=== PATIENT | female | born 1965 | race Caucasian/White ===

== ENCOUNTER → 2017-01-12 | Outpatient (CLI) | payer OTHER ==
--- NOTE | 2017-01-13 11:54 | MM ---
Reason for exam: screening (asymptomatic). Last mammogram was performed 1 year and 2 months ago. History: Patient is nulliparous. Excisional biopsy of the right breast, September 14, 2007. 2 excisional biopsies of the left breast. Physical Findings: A clinical breast exam by your physician is recommended on an annual basis and results should be correlated with mammographic findings. MG Screening Mammo w CAD Bilateral CC and MLO view(s) were taken. XCCL view(s) were taken of the left breast. Prior study comparison: November 27, 2015, bilateral MG screening mammo w CAD. July 21, 2014, bilateral MG screening mammo w CAD. The breast tissue is extremely dense which could obscure a lesion on mammography. Finding: There are typically benign calcifications. No significant changes in finding since November 27, 2015 and July 21, 2014. ASSESSMENT: Benign, BI-RAD 2 RECOMMENDATION: Routine screening mammogram of both breasts in 1 year.
== END | disposition home or self-care (01) ==
LOC: RADMAMWWP 11:41
PROVIDERS: ATTEND Family Medicine
DX: Z12.31 Encounter for screening mammogram for malignant neoplasm of breast (principal)

== ENCOUNTER 2017-04-21 19:17 | Emergency (ER) | payer OTHER ==
[2017-04-21 19:33] VITALS: BP 124/58; PULSE 89; RESP 20; TEMP 98
[2017-04-21] MEDS ORDERED: ceFAZolin 1,000 MG VIAL IM STA (20:03)
[2017-04-21] MEDS ORDERED: SULFAMETH-TMP DS STARTER PACK 2 TAB BTL PO STA (20:04)
--- NOTE | 2017-04-21 20:14 | ED ---
General Adult HPI - General Chief complaint: Skin/Abscess/Foreign Body Stated complaint: rt breast swelling and tenderness Time Seen by Provider: 04/21/17 19:44 Source: patient, RN notes reviewed, old records reviewed Mode of arrival: ambulatory Limitations: no limitations - History of Present Illness Initial comments: This is a pleasant 51-year-old female who is still developmentally disabled presenting to the emergency department with chief complaint of r right breast tenderness, redness and swelling for the past day. Patient's caregiver reports that she gave her shower yesterday and did not notice anything. She reports that today when he went to take a shower shethat are right breast is been inflamed. Patient caregiver reports she did have a mammogram 3 months ago which was clear. He states that she has a history of OCD and is constantly picking at her skin. She reports that she's had a chronic rash between her breasts and believes that the patient was scratching at this causes the new erythema and redness. Patient has had no fevers or chills. Patient's caregiver denies any other associated symptoms.Patient denies any recent fever, chills, shortness of breath, chest pain, back pain, abdominal pain, nausea vomiting, numbness or tingling, dysuria or hematuria, constipation or diarrhea, headaches or visual changes, or any other current symptoms - Related Data Previous Rx's Medication Instructions Recorded Cephalexin [Keflex] 500 mg PO Q6HR #40 cap 04/21/17 Sulfamethox-Tmp 800-160Mg [Bactrim 1 tab PO Q12HR #20 tab 04/21/17 DS 800-160 mg] Allergies Allergy/AdvReac Type Severity Reaction Status Date / Time No Known Allergies Allergy Verified 04/21/17 19:32 Review of Systems ROS Statement: Those systems with pertinent positive or pertinent negative responses have been documented in the HPI. ROS Other: All systems not noted in ROS Statement are negative. Past Medical History Past Medical History: Hyperlipidemia, Seizure Disorder Additional Past Medical History / Comment(s): developmentally disable, History of Any Multi-Drug Resistant Organisms: None Reported Past Surgical History: Cholecystectomy Additional Past Surgical History / Comment(s): lumpectomy bilateral breasts. Past Psychological History: No Psychological Hx Reported Smoking Status: Never smoker Past Alcohol Use History: None Reported Past Drug Use History: None Reported General Exam - General Exam Comments Initial Comments: Curt 51-year-old female. No acute distress. Limitations: no limitations General appearance: alert, in no apparent distress Head exam: Present: atraumatic, normocephalic, normal inspection Eye exam: Present: normal appearance, PERRL, EOMI. Absent: scleral icterus, conjunctival injection, periorbital swelling ENT exam: Present: normal exam, mucous membranes moist Neck exam: Present: normal inspection. Absent: tenderness, meningismus, lymphadenopathy Respiratory exam: Present: normal lung sounds bilaterally, other (Right breast redness and swelling. No evidence of focal abscess. No significant induration. ). Absent: respiratory distress, wheezes, rales, rhonchi, stridor Cardiovascular Exam: Present: regular rate, normal rhythm, normal heart sounds. Absent: systolic murmur, diastolic murmur, rubs, gallop, clicks GI/Abdominal exam: Present: soft, normal bowel sounds. Absent: distended, tenderness, guarding, rebound, rigid Extremities exam: Present: normal inspection, full ROM, normal capillary refill. Absent: tenderness, pedal edema, joint swelling, calf tenderness Back exam: Present: normal inspection Neurological exam: Present: alert, oriented X3, CN II-XII intact Psychiatric exam: Present: normal affect, normal mood Skin exam: Present: warm, dry, intact, normal color. Absent: rash Course Vital Signs 04/21/17 19:27 Temperature 98 F Pulse Rate 89 Respiratory 20 Rate Blood Pressure 124/58 O2 Sat by Pulse 97 Oximetry Medical Decision Making - Medical Decision Making This is a pleasant 51-year-old female who is still developmentally disabled presenting to the emergency department with chief complaint of r right breast tenderness, redness and swelling for the past day. Patient's caregiver reports that she gave her shower yesterday and did not notice anything. She reports that today when he went to take a shower shethat are right breast is been inflamed. Patient caregiver reports she did have a mammogram 3 months ago which was clear. He states that she has a history of OCD and is constantly picking at her skin. She reports that she's had a chronic rash between her breasts and believes that the patient was scratching at this causes the new erythema and redness. Patient has had no fevers or chills. Patient's caregiver denies any other associated symptoms. His vital signs are stable. Patient is afebrile at this time. Patient given IM Kefzol and Bactrim DS tablet. Discussed this case with Dr. Robles we will send the patient home on outpatient oral antibiotic therapy. Discussed with the caregiver and patient if there is area of erythema continues to spread or worse they need to return to the emergency department for IV antibiotic. Patient also was informed of the possibility of inflammatory breast cancer the area of redness does not clear within taking the antibiotics. Patient's caregiver is in agreement. Patient caregiver and patient understand treatment plan will comply. Return parameters were discussed. Disposition Clinical Impression: Cellulitis of right breast Disposition: HOME SELF-CARE Condition: Good Instructions: Cellulitis (ED) Additional Instructions: Patient advised to complete the antibiotic prescription. Follow-up with primary care provider. Return to the emergency department if the area of redness continues to worsen despite taking antibiotics. Recommending applying ice over the area of redness for pain relief, as well as taking Motrin and Tylenol. Prescriptions: Cephalexin [Keflex] 500 mg PO Q6HR #40 cap Sulfamethox-Tmp 800-160Mg [Bactrim DS 800-160 mg] 1 tab PO Q12HR #20 tab Referrals: Mango Randall DO [Primary Care Provider] - 1-2 days Time of Disposition: 20:10
[2017-04-21] MEDS ORDERED: CEPHALEXIN 500MG STARTER PACK 4 CAP BTL PO STA (20:20)
== END 2017-04-21 20:38 | disposition home or self-care (01) ==
LOC: EC 19:17
DX: N61.0 Mastitis without abscess (principal); Z98.890 Other specified postprocedural states
CPT/HCPCS: 99283; 96372; J0690

== ENCOUNTER → 2017-12-30 | Outpatient (CLI) | payer OTHER ==
[2017-12-30 12:53] LABS: Basophils % (A) 0 %; Eosinophils # (A) 0.1 k/uL (0-0.7); Eosinophils % (A) 1 %; HGB 12.4 gm/dL (11.4-16.0); Lymphocytes % (A) 34 %; MCH 34.1 pg (25.0-35.0); MCHC 33.5 g/dL (31.0-37.0); MCV 101.8 fL (80.0-100.0); Macrocytosis Slight; Mean Platelet Volume 7.2; Monocytes # (A) 0.5 k/uL (0-1.0); Monocytes % (A) 9 %; Neutrophils # (A) 3.1 k/uL (1.3-7.7); Neutrophils % (A) 53 %; Platelet Count 203 k/uL (150-450); RBC 3.64 m/uL (3.80-5.40); RDW 15.1 % (11.5-15.5); WBC 5.9 k/uL (3.8-10.6)
[2017-12-30 13:12] LABS: Valproic Acid (Depakene) 70.9 ug/mL
== END | disposition home or self-care (01) ==
LOC: LABWHC1 11:52
PROVIDERS: ATTEND Psychiatry & Neurology Neurology
DX: G40.209 Localization-related (focal) (partial) symptomatic epilepsy and epileptic syndromes with complex partial seizures, not intractable, without status epilepticus (principal)
CPT/HCPCS: 36415; 80164; 80175; 84450; 84460; 85025

== ENCOUNTER → 2018-05-13 | Outpatient (CLI) | payer OTHER ==
--- NOTE | 2018-05-18 13:52 | MM ---
Reason for exam: screening (asymptomatic). Last mammogram was performed 1 year and 4 months ago. History: Patient is nulliparous. Excisional biopsy of the right breast, September 14, 2007. 2 excisional biopsies of the left breast. MG Screening Mammo w CAD Bilateral CC and MLO view(s) were taken. Prior study comparison: January 12, 2017, bilateral MG screening mammo w CAD. November 27, 2015, bilateral MG screening mammo w CAD. July 21, 2014, bilateral MG screening mammo w CAD. The breast tissue is extremely dense which could obscure a lesion on mammography. Some stable distortion centrally right breast CC view suggestive of prior excisional biopsy. Additional distortion posterior medially left breast also seen previously suggestive of prior excisional biopsy. Two groups of microcalcifications medial right breast new from older priors and increased from recent prior. ASSESSMENT: Incomplete: need additional imaging evaluation, BI-RAD 0 RECOMMENDATION: Special view mammogram of the right breast.
== END | disposition home or self-care (01) ==
LOC: RADMAMWWP 14:45
PROVIDERS: ATTEND Family Medicine
DX: Z12.31 Encounter for screening mammogram for malignant neoplasm of breast (principal)
CPT/HCPCS: 77067

== ENCOUNTER → 2018-06-09 | Outpatient (CLI) | payer OTHER ==
--- NOTE | 2018-06-10 11:57 | MM ---
Reason for exam: additional evaluation requested from abnormal screening. Last mammogram was performed 1 month ago. History: Patient is nulliparous. Excisional biopsy of the right breast, September 14, 2007. 2 excisional biopsies of the left breast. Physical Findings: Nurse did not find any significant physical abnormalities on exam. MG Work Up Mamm w CAD RT CC with magnification, LM with magnification, and LM view(s) were taken of the right breast. Prior study comparison: May 13, 2018, bilateral MG screening mammo w CAD. January 12, 2017, bilateral MG screening mammo w CAD. The breast tissue is heterogeneously dense. This may lower the sensitivity of mammography. Two grouped heterogeneous calcifications probably at 1 o'clock and 5-6 o'clock. These results were verbally communicated with the patient and result sheet given to the patient on 06/09/18. ASSESSMENT: Suspicious, BI-RAD 4 RECOMMENDATION: Stereotactic core biopsy of the right breast. (2 sites) Called Dr. Randall with mammographic findings and has scheduled an appointment for the patient for 06/17/18 at 1:[address] Reeder. PRELIMINARY REPORT CALLED AND FAXED TO DR. REEDER ON 06/10/18.
== END | disposition home or self-care (01) ==
LOC: RADMAMWWP 10:51
PROVIDERS: ATTEND Family Medicine
DX: R92.8 Other abnormal and inconclusive findings on diagnostic imaging of breast (principal)
CPT/HCPCS: 77065

== ENCOUNTER → 2018-07-05 | Day surgery (SDC) | payer OTHER ==
[2018-07-05 12:59] VITALS: RESP 16; BMI 27.4
[2018-07-05 14:57] VITALS: BP 111/69; PULSE 71; TEMP 97.5
--- NOTE | 2018-07-05 16:30 | P.OP ---
Date of Procedure: 07/05/18 Preoperative Diagnosis: Abnormal mammogram with suspicious lesions 2 Postoperative Diagnosis: Abnormal right mammogram with suspicious agents 2 Procedure(s) Performed: Stereotactic core biopsy of right breast 2 Anesthesia: local Surgeon: Shashi Reeder Estimated Blood Loss (ml): 2 Pathology: other (Right breast core biopsy) Condition: stable Description of Procedure: The patient's placed on the stereotactic table. Her right breast was prepped and draped usual sterile fashion. The patient's lesion was then targeted by the radiologist. Sequential core biopsies performed of the abnormality. A clip was placed Patient tolerated the procedure. The patient's breasts was then repositioned in stereotactic core table. A new suspicious area was then core biopsied after being targeted by the radiologist. Sequential core biopsy performed. A clip was placed. Patient top procedure well.
== END | disposition home or self-care (01) ==
LOC: RADMAMWWP 12:22
PROVIDERS: ATTEND Surgery
DX: D24.1 Benign neoplasm of right breast (principal); N60.21 Fibroadenosis of right breast
CPT/HCPCS: 88305; 19081; 19082; A4648

== ENCOUNTER → 2018-07-12 | Outpatient (CLI) | payer SELFPAY ==
[2018-07-12 13:24] LABS: Basophils % (A) 0 %; Eosinophils # (A) 0.1 k/uL (0-0.7); Eosinophils % (A) 1 %; HCT 36.5 % (34.0-46.0); HGB 11.8 gm/dL (11.4-16.0); Lymphocytes % (A) 37 %; MCH 33.6 pg (25.0-35.0); MCHC 32.2 g/dL (31.0-37.0); MCV 104.4 fL (80.0-100.0); Macrocytosis Moderate; Mean Platelet Volume 7.2; Monocytes # (A) 0.5 k/uL (0-1.0); Monocytes % (A) 8 %; Neutrophils # (A) 2.8 k/uL (1.3-7.7); Neutrophils % (A) 51 %; Platelet Count 218 k/uL (150-450); RDW 15.8 % (11.5-15.5); WBC 5.4 k/uL (3.8-10.6)
[2018-07-12 13:45] LABS: Valproic Acid (Depakene) 82.1 ug/mL
== END | disposition home or self-care (01) ==
LOC: LABWHC1 13:02
PROVIDERS: ATTEND Psychiatry & Neurology Neurology
DX: G40.209 Localization-related (focal) (partial) symptomatic epilepsy and epileptic syndromes with complex partial seizures, not intractable, without status epilepticus (principal)
CPT/HCPCS: 36415; 80164; 80175; 84450; 84460; 85025

== ENCOUNTER 2018-11-18 13:49 | Emergency (ER) | payer OTHER ==
[2018-11-18 14:36] VITALS: RESP 18; TEMP 98.7
[2018-11-18] MEDS ORDERED: SODIUM CHLORIDE 0.9% 1,000 ML IV ONE (14:45)
[2018-11-18 15:54] LABS: Appearance,Urine Clear (Clear); Bilirubin,Urine Negative (Negative); Blood,Urine Small (Negative); Color,Urine Yellow; Glucose,Urine (UA) Negative (Negative); Ketones,Urine 2+ (Negative); Leukocyte Esterase,Urine Trace (Negative); Mucus,Urine Occasional /hpf; Nitrite,Urine Negative (Negative); PH, Urine 6.5 (5.0-8.0); Protein,Urine Trace (Negative); RBC,Urine 12 /hpf (0-5); Specific Gravity,Urine 1.023 (1.001-1.035); Squamous Epithelial Cell,Urine 2 /hpf (0-4)
--- NOTE | 2018-11-18 16:11 | XR ---
EXAMINATION TYPE: XR chest 2V DATE OF EXAM: 11/18/2018 COMPARISON: NONE HISTORY: Altered mental status and cough for 3 days. Lethargy. TECHNIQUE: Frontal and lateral views of the chest are obtained. FINDINGS: Interstitial prominence is most pronounced dependently within the mid and inferior lungs. Cardia mediastinal silhouette is mildly enlarged. Osseous structures are grossly intact. No focal con solidation, pleural effusion or pneumothorax. IMPRESSION: Dependent mild interstitial pulmonary edema likely on the basis of congestive heart fail ure.
[2018-11-18 16:19] LABS: Anisocytosis Slight; Basophils % (A) 0 %; Eosinophils % (A) 1 %; HCT 38.6 % (34.0-46.0); HGB 12.4 gm/dL (11.4-16.0); Lymphocytes # (A) 0.9 k/uL (1.0-4.8); Lymphocytes % (A) 22 %; MCH 33.6 pg (25.0-35.0); MCHC 32.1 g/dL (31.0-37.0); MCV 104.7 fL (80.0-100.0); Macrocytosis Moderate; Monocytes # (A) 0.4 k/uL (0-1.0); Monocytes % (A) 10 %; Neutrophils # (A) 2.7 k/uL (1.3-7.7); Neutrophils % (A) 66 %; Platelet Count 153 k/uL (150-450); RBC 3.69 m/uL (3.80-5.40); RDW 16.2 % (11.5-15.5); WBC 4.1 k/uL (3.8-10.6)
--- NOTE | 2018-11-18 16:22 | CT ---
EXAMINATION TYPE: CT abdomen pelvis w con DATE OF EXAM: 11/18/2018 COMPARISON: HISTORY: Generalized pain CT DLP: 726 mGycm Automated exposure control for dose reduction was used. TECHNIQUE: Helical acquisition of images from the lung bases through the pelvis have been completed. CONTRAST: Performed without Oral Contrast and with IV Contrast, patient injected with 100 mL of Isovue 300. FINDINGS: LUNG BASES: Some probable atelectatic change present in the lingula, left lower lobe, difficult to ex clude pneumonia. AORTA: No significant abnormality is appreciated. LIVER/GB: Patient is post cholecystectomy. Liver shows no mass. PANCREAS: No significant abnormality is seen. SPLEEN: No significant abnormality is seen. ADRENALS: No significant abnormality is seen. KIDNEYS: No significant abnormality is seen. REPRODUCTIVE ORGANS: No significant abnormality is seen BOWEL: No evident bowel obstruction. There are some loops of small bowel showing questionable wall t hickening. Focal metallic density may be represent bowel content along the ascending colon. FREE AIR: No Free Air visible. ASCITES: None visible. PELVIC ADENOPATHY: None visualized. RETROPERITONEAL ADENOPATHY: No Retroperitoneal Adenopathy visible. URINARY BLADDER: No significant abnormality is seen. OSSEOUS STRUCTURES: No significant abnormality is seen. IMPRESSION: CORRELATE TO EXCLUDE ENTERITIS. POSTOP CHANGES. CORRELATE TO EXCLUDE PNEUMONIA. FOLLOW-UP INDICATE D. Additional nonspecific findings described above.
[2018-11-18 16:24] LABS: ALT 37 U/L (9-52); AST 71 U/L (14-36); Albumin 4.2 g/dL (3.5-5.0); Alkaline Phosphatase 76 U/L (38-126); Anion Gap 8 mmol/L; Blood Urea Nitrogen 16 mg/dL (7-17); Calcium 10.3 mg/dL (8.4-10.2); Carbon Dioxide 28 mmol/L (22-30); Chloride 104 mmol/L (98-107); Glucose 83 mg/dL (74-99); Lipase 167 U/L (23-300); Potassium 4.1 mmol/L (3.5-5.1); Sodium 140 mmol/L (137-145); Total Bilirubin 0.3 mg/dL (0.2-1.3); Total Protein 7.8 g/dL (6.3-8.2)
--- NOTE | 2018-11-18 17:16 | US ---
EXAMINATION TYPE: US abdomen limited DATE OF EXAM: 11/18/2018 COMPARISON: CT 2019 CLINICAL HISTORY: RUQ pain. RUQ pain x couple days, history of cholecystectomy EXAM MEASUREMENTS: Liver Length: 16.0 cm Gallbladder Wall: surgically absent CBD: 0.4 cm Right Kidney: 10.5 x 3.8 x 5.1 cm Pancreas: visualized portions wnl, limited by overlying midline bowel gas Liver: wnl Gallbladder: surgically absent Evidence for sonographic Borden's sign: no CBD: visualized portions wnl, limited by overlying bowel gas Right Kidney: wnl IMPRESSION: Cholecystectomy. No dilated ducts. No free fluid. Right kidney shows no hydronephrosis. T here is some cortical thinning on the lower pole of the right kidney that could relate to scarring.
--- NOTE | 2018-11-18 17:19 | ED ---
URI HPI - General Chief Complaint: Upper Respiratory Infection Stated Complaint: No appetie, mental status change Time Seen by Provider: 11/18/18 14:39 Source: patient, Caregiver Mode of arrival: ambulatory Limitations: no limitations - History of Present Illness Initial Comments: 53-year-old female with past medical history of developmental delays presenting today for chief complaint of cough, and abdominal pain. Patient is accompanied by shelter help, she states that patient has been complaining of abdominal pain and sore throat for the past 2-3 days. She states pt has been acting more sluggish she states sometimes this happens with a UTI. I read patient's triage which stated patient had altered mental status however upon further questioning and history taking, they deny any altered mental status they just state she has been acting as though she is sick/more fatigued than normal. No decreased mentation or confusion. Upon history taking from patient she points to her throat as well as her abdomen when questioning about complaints. half-way states they have taken her temperature on multiple occasions and patient has not had a fever. She was given Tylenol this morning for pain management. Patient does admit to some constipation, denied diarrhea, vomiting, hematemesis , melena, hematochezia, back pain, headache, dizziness. Upon arrival patient's appearing well, woman patient is accompanied by states she is at baseline. Pt VS within normal limits. Pt pleasant appearing nontoxic. Remaining ROS (-). There are sick contacts in the shelter including positive influenza. - Related Data Home Medications Medication Instructions Recorded Confirmed Cholecalciferol [Vitamin D3] 1,000 unit PO DAILY 06/23/18 07/05/18 Divalproex [Depakote] 250 mg PO DAILY 06/23/18 07/05/18 Divalproex [Depakote] 500 mg PO BID 06/23/18 07/05/18 Folic Acid 1 mg PO DAILY 06/23/18 07/05/18 Levothyroxine Sodium [Synthroid] 25 mcg PO DAILY 06/23/18 07/05/18 Simvastatin [Zocor] 20 mg PO HS 06/23/18 07/05/18 lamoTRIgine [LaMICtal] 150 mg PO BID 06/23/18 07/05/18 Previous Rx's Medication Instructions Recorded Cephalexin [Keflex] 500 mg PO Q12HR 5 Days #10 cap 11/18/18 Oseltamivir [Tamiflu] 75 mg PO Q12HR 5 Days #10 cap 11/18/18 Allergies Allergy/AdvReac Type Severity Reaction Status Date / Time No Known Allergies Allergy Verified 11/18/18 14:31 Review of Systems ROS Statement: Those systems with pertinent positive or pertinent negative responses have been documented in the HPI. ROS Other: All systems not noted in ROS Statement are negative. Past Medical History Past Medical History: Hyperlipidemia, Seizure Disorder Additional Past Medical History / Comment(s): Developmentally disabled History of Any Multi-Drug Resistant Organisms: None Reported Past Surgical History: Breast Surgery, Cholecystectomy Additional Past Surgical History / Comment(s): Benign excisional biopsy bilateral breasts. Past Anesthesia/Blood Transfusion Reactions: No Reported Reaction Past Psychological History: No Psychological Hx Reported Smoking Status: Never smoker Past Alcohol Use History: None Reported Past Drug Use History: None Reported General Exam - General Exam Comments Initial Comments: General: The patient is awake and alert, in no distress, and does not appear acutely ill. Eye: +3 mm pupils are equal, round and reactive to light, extra-ocular movements are intact. No nystagmus. There is normal conjunctiva bilaterally. No signs of icterus. Ears, nose, mouth and throat: There are moist mucous membranes and no oral lesions. Oropharynx is mildly erythematous there is no tonsillar enlargement exudates or lesions. Uvula midline. Tympanic membranes within normal limits bilaterally. There is no evidence of dental abscess. Neck: The neck is supple, there is no tenderness or JVD. No anterior cervical lymphadenopathy Cardiovascular: There is a regular rate and rhythm. No murmur, rub or gallop is appreciated. Respiratory: Lungs are clear to auscultation, respirations are non-labored, breath sounds are equal. No wheezes, stridor, rales, or rhonchi. Dry cough on exam. Gastrointestinal: Soft, non-distended, non distended abdomen without masses or organomegaly noted. Mild diffuse tenderness to palpation including the RUQ. There is no rebound or guarding present. No CVA tenderness. Bowel sounds are unremarkable. Musculoskeletal: Normal ROM, no tenderness. Strength 5/5. Sensation intact. Radial pulses equal bilaterally 2+. Neurological: A&O x 3. CN II-XII intact, There are no obvious motor or sensory deficits. Coordination appears grossly intact. Speech is normal. Skin: Skin is warm and dry and no rashes or lesions are noted. Psychiatric: Cooperative Limitations: no limitations Course Vital Signs 11/18/18 14:31 Temperature 98.7 F Pulse Rate 83 Respiratory 18 Rate Blood Pressure 125/83 O2 Sat by Pulse 96 Oximetry Medical Decision Making - Medical Decision Making Laboratory studies revealed no leukocytosis. There was evidence of increase of AST. Remaining serum laboratory studies within acceptable limits. US revealed findings concerning for UTI, no recent abx use. Negative ultrasound of the right upper quadrant. Influenza A+ with negative chest x-ray for focal consolidation. Pt symptoms on going about 2 days. Tamiflu will be initiated. CT abdomen was obtained given the complaints of abdominal pain in a developmentally delayed individual with concern patient cannot fully express her complaints, CT revealed findings concerning for enteritis no other abnormalities noted. I discusses the case with attending provider as well as the results of all imaging studies with family. At this time we do feel patient is stable for discharge with treatment for urinary tract infection and Tamiflu for influenza A. otherwise patient is well-appearing, nontoxic with stable vital signs. I do feel patient is stable for discharge with outpatient follow-up and return for any worsening symptoms. 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 Pt discharged in stable condition appearing well. - Lab Data Result diagrams: 11/18/18 15:43 11/18/18 15:43 Lab Results 11/18/18 11/18/18 11/18/18 Range/Units 15:30 15:43 15:43 WBC 4.1 (3.8-10.6) k/uL RBC 3.69 L (3.80-5.40) m/uL Hgb 12.4 (11.4-16.0) gm/dL Hct 38.6 (34.0-46.0) % MCV 104.7 H (80.0-100.0) fL MCH 33.6 (25.0-35.0) pg MCHC 32.1 (31.0-37.0) g/dL RDW 16.2 H (11.5-15.5) % Plt Count 153 (150-450) k/uL Neutrophils % 66 % Lymphocytes % 22 % Monocytes % 10 % Eosinophils % 1 % Basophils % 0 % Neutrophils # 2.7 (1.3-7.7) k/uL Lymphocytes # 0.9 L (1.0-4.8) k/uL Monocytes # 0.4 (0-1.0) k/uL Eosinophils # 0.0 (0-0.7) k/uL Basophils # 0.0 (0-0.2) k/uL Anisocytosis Slight Macrocytosis Moderate Sodium 140 (137-145) mmol/L Potassium 4.1 (3.5-5.1) mmol/L Chloride 104 (98-107) mmol/L Carbon Dioxide 28 (22-30) mmol/L Anion Gap 8 mmol/L BUN 16 (7-17) mg/dL Creatinine 0.63 (0.52-1.04) mg/dL Est GFR (CKD-EPI)AfAm >90 (>60 ml/min/1.73 sqM) Est GFR (CKD-EPI)NonAf >90 (>60 ml/min/1.73 sqM) Glucose 83 (74-99) mg/dL Calcium 10.3 H (8.4-10.2) mg/dL Total Bilirubin 0.3 (0.2-1.3) mg/dL AST 71 H (14-36) U/L ALT 37 (9-52) U/L Alkaline Phosphatase 76 (38-126) U/L Troponin I (0.000-0.034) ng/mL Total Protein 7.8 (6.3-8.2) g/dL Albumin 4.2 (3.5-5.0) g/dL Lipase 167 (23-300) U/L Urine Color Yellow Urine Appearance Clear (Clear) Urine pH 6.5 (5.0-8.0) Ur Specific [place] 1.023 (1.001-1.035) Urine Protein Trace H (Negative) Urine Glucose (UA) Negative (Negative) Urine Ketones 2+ H (Negative) Urine Blood Small H (Negative) Urine Nitrite Negative (Negative) Urine Bilirubin Negative (Negative) Urine Urobilinogen 3.0 (<2.0) mg/dL Ur Leukocyte Esterase Trace H (Negative) Urine RBC 12 H (0-5) /hpf Urine WBC 4 (0-5) /hpf Ur Squamous Epith Cells 2 (0-4) /hpf Urine Mucus Occasional H (None) /hpf Influenza Type A RNA (Not Detectd) Influenza Type B (PCR) (Not Detectd) 11/18/18 11/18/18 Range/Units 15:43 16:25 WBC (3.8-10.6) k/uL RBC (3.80-5.40) m/uL Hgb (11.4-16.0) gm/dL Hct (34.0-46.0) % MCV (80.0-100.0) fL MCH (25.0-35.0) pg MCHC (31.0-37.0) g/dL RDW (11.5-15.5) % Plt Count (150-450) k/uL Neutrophils % % Lymphocytes % % Monocytes % % Eosinophils % % Basophils % % Neutrophils # (1.3-7.7) k/uL Lymphocytes # (1.0-4.8) k/uL Monocytes # (0-1.0) k/uL Eosinophils # (0-0.7) k/uL Basophils # (0-0.2) k/uL Anisocytosis Macrocytosis Sodium (137-145) mmol/L Potassium (3.5-5.1) mmol/L Chloride (98-107) mmol/L Carbon Dioxide (22-30) mmol/L Anion Gap mmol/L BUN (7-17) mg/dL Creatinine (0.52-1.04) mg/dL Est GFR (CKD-EPI)AfAm (>60 ml/min/1.73 sqM) Est GFR (CKD-EPI)NonAf (>60 ml/min/1.73 sqM) Glucose (74-99) mg/dL Calcium (8.4-10.2) mg/dL Total Bilirubin (0.2-1.3) mg/dL AST (14-36) U/L ALT (9-52) U/L Alkaline Phosphatase (38-126) U/L Troponin I <0.012 (0.000-0.034) ng/mL Total Protein (6.3-8.2) g/dL Albumin (3.5-5.0) g/dL Lipase (23-300) U/L Urine Color Urine Appearance (Clear) Urine pH (5.0-8.0) Ur Specific [place] (1.001-1.035) Urine Protein (Negative) Urine Glucose (UA) (Negative) Urine Ketones (Negative) Urine Blood (Negative) Urine Nitrite (Negative) Urine Bilirubin (Negative) Urine Urobilinogen (<2.0) mg/dL Ur Leukocyte Esterase (Negative) Urine RBC (0-5) /hpf Urine WBC (0-5) /hpf Ur Squamous Epith Cells (0-4) /hpf Urine Mucus (None) /hpf Influenza Type A RNA Detected H (Not Detectd) Influenza Type B (PCR) Not Detected (Not Detectd) Disposition Clinical Impression: Influenza, UTI (urinary tract infection) Disposition: HOME SELF-CARE Condition: Good Instructions (If sedation given, give patient instructions): Urinary Tract Infection in Women (ED), Influenza (ED) Additional Instructions: Please use medication as discussed. Please follow-up with family doctor in the next 2 days.. Please return to emergency room if the symptoms increase or worsen or for any other concerns. Prescriptions: Cephalexin [Keflex] 500 mg PO Q12HR 5 Days #10 cap Oseltamivir [Tamiflu] 75 mg PO Q12HR 5 Days #10 cap Is patient prescribed a controlled substance at d/c from ED?: No Referrals: Mango Randall DO [Primary Care Provider] - 1-2 days Time of Disposition: 17:18
[2018-11-18 18:27] VITALS: BP 143/76; PULSE 76
== END 2018-11-18 18:28 | disposition home or self-care (01) ==
LOC: EC 13:49
DX: J10.1 Influenza due to other identified influenza virus with other respiratory manifestations (principal); N39.0 Urinary tract infection, site not specified; R74.8 Abnormal levels of other serum enzymes; R62.50 Unspecified lack of expected normal physiological development in childhood; K59.00 Constipation, unspecified; E78.5 Hyperlipidemia, unspecified; G40.909 Epilepsy, unspecified, not intractable, without status epilepticus; Z79.890 Hormone replacement therapy; Z79.899 Other long term (current) drug therapy; Z90.49 Acquired absence of other specified parts of digestive tract
CPT/HCPCS: 36415; 80053; 83690; 84484; 85025; 81001; 87502; 71046; 76705; 74177; 99284; 96360; 96361; Q9967

== ENCOUNTER → 2019-01-10 | Outpatient (CLI) | payer OTHER ==
--- NOTE | 2019-01-10 11:37 | MM ---
Reason for exam: follow-up at short interval from prior study. Last mammogram was performed 7 months ago. History: Patient is nulliparous. Benign MG stereo VAD BX addl RT of the right breast, July 05, 2018. Benign MG stereo VAD BX RT of the right breast, July 05, 2018. Excisional biopsy of the right breast, September 14, 2007. 2 excisional biopsies of the left breast. Physical Findings: Nurse did not find any significant physical abnormalities on exam. MG Diagnostic Mammo RT w CAD CC and MLO view(s) were taken of the right breast. Prior study comparison: June 09, 2018, right breast MG work up mamm w CAD RT. May 13, 2018, bilateral MG screening mammo w CAD. No significant new findings when compared with previous films. These results were verbally communicated with the patient and result sheet given to the patient on 01/10/19. ASSESSMENT: Benign, BI-RAD 2 RECOMMENDATION: Return to routine screening mammogram schedule for both breasts. Back on schedule.
== END | disposition home or self-care (01) ==
LOC: RADMAMWWP 10:47
PROVIDERS: ATTEND Surgery
DX: R92.8 Other abnormal and inconclusive findings on diagnostic imaging of breast (principal)
CPT/HCPCS: 77065

== ENCOUNTER → 2020-04-20 | Outpatient (CLI) | payer OTHER ==
--- NOTE | 2020-04-20 11:54 | MM ---
Reason for exam: screening (asymptomatic). Last mammogram was performed 1 year and 3 months ago. History: Patient is postmenopausal and is nulliparous. Benign MG stereo VAD BX addl RT of the right breast, July 05, 2018. Benign MG stereo VAD BX RT of the right breast, July 05, 2018. Excisional biopsy of the right breast, September 14, 2007. 2 excisional biopsies of the left breast. Physical Findings: A clinical breast exam by your physician is recommended on an annual basis and results should be correlated with mammographic findings. MG Screening Mammo w CAD Bilateral CC and MLO view(s) were taken. Prior study comparison: January 10, 2019, right breast MG diagnostic mammo RT w CAD. June 09, 2018, right breast MG work up mamm w CAD RT. The breast tissue is heterogeneously dense. This may lower the sensitivity of mammography. Previous mammotome biopsy in the right breast x 2. Post surgical changes left breast, better visualized. Short term follow up recommended. ASSESSMENT: Probably benign, BI-RAD 3 RECOMMENDATION: Follow-up diagnostic mammogram of the left breast in 6 months. (two views, attention CC view)
== END | disposition home or self-care (01) ==
LOC: RADMAMWWP 10:58
PROVIDERS: ATTEND Family Medicine
DX: Z12.31 Encounter for screening mammogram for malignant neoplasm of breast (principal)
CPT/HCPCS: 77067

== ENCOUNTER → 2020-05-24 | Day surgery (SDC) | payer OTHER ==
[2020-05-22 09:41] VITALS: BMI 27.8
[~2020-05-24] MED LIST: LACTATED RINGERS 1,000 ML IV SCH; PROPOFOL 10 MG/ML 20 ML VIAL IV ONE
[2020-05-24 10:52] VITALS: PULSE 61; TEMP 96.5
--- NOTE | 2020-05-24 11:01 | P.GSHP ---
History of Present Illness H&P Date: 05/24/20 Chief Complaint: Screening colonoscopy This a 54-year-old female presents today for screening colonoscopy. Patient denies any significant GI complaints. Past Medical History Past Medical History: Hyperlipidemia, Seizure Disorder Additional Past Medical History / Comment(s): Developmentally disabled, LAST SEIZURE 2007 History of Any Multi-Drug Resistant Organisms: None Reported Past Surgical History: Breast Surgery, Cholecystectomy Additional Past Surgical History / Comment(s): Benign excisional biopsy bilateral breasts. Past Anesthesia/Blood Transfusion Reactions: No Reported Reaction Smoking Status: Never smoker - Past Family History Mother Family Medical History: No Reported History Brother(s) Family Medical History: Cancer Medications and Allergies Home Medications Medication Instructions Recorded Confirmed Type Cholecalciferol [Vitamin D3] 1,000 unit PO DAILY 06/23/18 05/22/20 History Divalproex [Depakote] 1,000 mg PO DAILY 06/23/18 05/22/20 History Divalproex [Depakote] 1,250 mg PO HS 06/23/18 05/22/20 History Folic Acid 1 mg PO DAILY 06/23/18 05/22/20 History Levothyroxine Sodium [Synthroid] 25 mcg PO DAILY 06/23/18 05/22/20 History Simvastatin [Zocor] 20 mg PO HS 06/23/18 05/22/20 History lamoTRIgine [LaMICtal] 125 mg PO DAILY 06/23/18 05/22/20 History lamoTRIgine [LaMICtal] 150 mg PO HS 05/22/20 05/22/20 History Allergies Allergy/AdvReac Type Severity Reaction Status Date / Time No Known Allergies Allergy Verified 05/24/20 10:32 Surgical - Exam Vital Signs Temp Pulse Resp BP Pulse Ox 96.5 F L 61 16 120/56 98 05/24/20 10:39 05/24/20 10:39 05/24/20 10:39 05/24/20 10:39 05/24/20 10:39 - General well developed, well nourished, no distress - Eyes PERRL - ENT normal pinna - Neck no masses - Respiratory normal expansion - Cardiovascular Rhythm: regular - Abdomen Abdomen: soft, non tender Assessment and Plan Assessment: We'll perform screening colonoscopy
--- NOTE | 2020-05-24 11:15 | P.OP ---
Date of Procedure: 05/24/20 Preoperative Diagnosis: Screening colonoscopy Postoperative Diagnosis: External hemorrhoids Procedure(s) Performed: Colonoscopy Anesthesia: MAC Surgeon: Shashi Reeder Pathology: none sent Condition: stable Disposition: PACU Description of Procedure: PROCEDURE: The patient was placed on the endoscopy table in the lateral position. Digital rectal examination was performed which revealed external hemorrhoids. s. Flexible colonoscope was then placed in the patient's anus and passed throughout the entire colon. The ileocecal valve was visualized. The cecum, ascending, transverse, descending and sigmoid colon were normal. The rectum was normal as well. There were no masses, polyps or diverticula noted in the entire colon.
[2020-05-24 11:21] VITALS: RESP 18
[2020-05-24 11:42] VITALS: BP 111/59
== END ==
LOC: ORWHC2ENDO 09:32
PROVIDERS: ATTEND Surgery
DX: Z12.11 Encounter for screening for malignant neoplasm of colon (principal); K64.4 Residual hemorrhoidal skin tags; E78.5 Hyperlipidemia, unspecified; E07.9 Disorder of thyroid, unspecified; R62.50 Unspecified lack of expected normal physiological development in childhood; G40.909 Epilepsy, unspecified, not intractable, without status epilepticus; Z79.890 Hormone replacement therapy; Z79.899 Other long term (current) drug therapy; Z90.49 Acquired absence of other specified parts of digestive tract; Z98.890 Other specified postprocedural states; Z80.9 Family history of malignant neoplasm, unspecified
CPT/HCPCS: J2704; G0121; 45378

== ENCOUNTER 2021-06-03 10:38 | Observation (INO) | payer OTHER ==
[2021-06-03] MEDS ORDERED: SODIUM CHLORIDE 0.9% 1,000 ML IV ONE (11:06)
--- NOTE | 2021-06-03 11:23 | ED ---
Altered Mental Status HPI - General Chief Complaint: Altered Mental Status Stated Complaint: fall, mental status change Time Seen by Provider: 06/03/21 11:01 Source: patient, family, RN notes reviewed, Caregiver Mode of arrival: wheelchair Limitations: language barrier, altered mental status - History of Present Illness Initial Comments: 55-year-old developmentally delayed, ill appearing, white female presents to the emergency room with her caregiver. Her caregiver states that she had 3 teeth extracted on May 10 and was put on amoxicillin. Patient continued to complain of increased pain inside her mouth and pulled her own stitches out. She was seen by her primary care doctor Dr. Randall who stopped the amoxicillin and put her on Bactrim last week for urinary tract infection. Patient has been complaining over the past 3 weeks of increased weakness, shortness of breath, but denies any fevers nausea or vomiting. Patient was walking down the steps today and fell down the last 3 steps striking the top of her head. She did not lose consciousness. Caregiver states that she still feels like her balance is off.. MD Complaint: altered mental status, weakness -: week(s) (3) Consistency of Symptoms: getting worse Context: trauma (Fell down 3 steps hitting head today), seizure disorder, other (Teeth extraction on May 10) Associated Symptoms: shortness of breath, weakness - Related Data Home Medications Medication Instructions Recorded Confirmed Divalproex [Depakote] 1,000 mg PO BID@0800,209906/23/18 06/03/21 Divalproex [Depakote] 250 mg PO HS 06/23/18 06/03/21 Folic Acid 1 mg PO DAILY@79906/23/18 06/03/21 Levothyroxine Sodium [Synthroid] 25 mcg PO DAILY@79906/23/18 06/03/21 Simvastatin [Zocor] 20 mg PO 06/23/18 06/03/21 lamoTRIgine [LaMICtal] 150 mg PO 05/22/20 06/03/21 Sulfamethox-Tmp 800-160Mg [Bactrim 1 tab PO BID@08,209906/03/21 06/03/21 DS 800-160 mg] lamoTRIgine 100 mg PO DAILY@79906/03/21 06/03/21 lamoTRIgine [LaMICtal] 25 mg PO DAILY@0800 06/03/21 06/03/21 Allergies Allergy/AdvReac Type Severity Reaction Status Date / Time No Known Allergies Allergy Verified 06/03/21 12:33 Review of Systems ROS Statement: Those systems with pertinent positive or pertinent negative responses have been documented in the HPI. ROS Other: All systems not noted in ROS Statement are negative. Past Medical History Past Medical History: Hyperlipidemia, Seizure Disorder Additional Past Medical History / Comment(s): Developmentally disabled, LAST SEIZURE 2007 History of Any Multi-Drug Resistant Organisms: None Reported Past Surgical History: Breast Surgery, Cholecystectomy Additional Past Surgical History / Comment(s): Benign excisional biopsy bilateral breasts. Past Anesthesia/Blood Transfusion Reactions: No Reported Reaction Past Psychological History: No Psychological Hx Reported Smoking Status: Never smoker - Past Family History Mother Family Medical History: No Reported History Brother(s) Family Medical History: Cancer General Exam Limitations: altered mental status General appearance: alert, in no apparent distress Head exam: Present: other (Abrasion to the right side parietal scalp approximately 4 x 5 cm) Eye exam: Present: normal appearance, PERRL, EOMI. Absent: scleral icterus, conjunctival injection, periorbital swelling Pupils: Present: normal accommodation ENT exam: Present: normal exam, normal oropharynx, mucous membranes dry Neck exam: Present: normal inspection, full ROM. Absent: tenderness, meningismus, lymphadenopathy, thyromegaly Respiratory exam: Present: normal lung sounds bilaterally. Absent: respiratory distress, wheezes, rales, rhonchi, stridor, chest wall tenderness, accessory muscle use, decreased breath sounds, prolonged expiratory Cardiovascular Exam: Present: regular rate, normal rhythm, normal heart sounds. Absent: systolic murmur, diastolic murmur, rubs, gallop, clicks, JVD GI/Abdominal exam: Present: soft, normal bowel sounds. Absent: distended, tenderness, guarding, rebound, rigid Extremities exam: Present: normal inspection, full ROM, normal capillary refill. Absent: tenderness, pedal edema, joint swelling, calf tenderness Back exam: Present: normal inspection, full ROM. Absent: tenderness, CVA tenderness (R), CVA tenderness (L), muscle spasm, paraspinal tenderness, vertebral tenderness, rash noted Neurological exam: Present: alert, CN II-XII intact Expanded Patient oriented to: Present: person Speech: Present: fluid speech Cranial nerves: EOM's Intact: Normal, Gag Reflex: Normal, Tongue Deviation: Normal Motor strength exam: RUE: 4, LUE: 5, RLE: 4, LLE: 5 Eye Response: (4) open spontaneously Motor Response: (6) obeys commands Verbal Response: (4) confused conversation Mcdougal Total: 14 Psychiatric exam: Present: normal affect, normal mood Skin exam: Present: warm, dry, intact, normal color. Absent: rash, cyanosis, diaphoretic, erythema, petechiae, pallor, mottled Course Vital Signs 06/03/21 06/03/21 06/03/21 10:39 12:27 14:54 Temperature 95.8 F L 97.5 F L Pulse Rate 73 73 75 Respiratory 18 20 20 Rate Blood Pressure 75/42 114/62 118/60 O2 Sat by Pulse 97 100 99 Oximetry Medical Decision Making - Medical Decision Making Hemoglobin and hematocrit are normal at 13.6 and 41.7, there is no evidence of leukocytosis. Her blood glucose level is 109. Troponin is negative at 0.012 and EKG shows normal sinus rhythm. CT brain showed no acute fractures or intracranial hemorrhage no mass or midline shift. Chest x-ray is negative for infiltrate. Patient's blood pressure is now 114/62 after a liter of normal saline. She is afebrile. Patient's altered mental status is likely related to her elevated valproic acid level of 147.2. Case discussed with Dr. Marti, patient will be admitted to Dr. Randall with her neurologist Dr. Murrell on consult. - Lab Data Result diagrams: 06/03/21 11:01 06/03/21 11:01 Lab Results 06/03/21 06/03/21 06/03/21 Range/Units 11:01 11:01 11:01 WBC 4.0 (3.8-10.6) k/uL RBC 3.91 (3.80-5.40) m/uL Hgb 13.6 (11.4-16.0) gm/dL Hct 41.7 (34.0-46.0) % MCV 106.8 H (80.0-100.0) fL MCH 34.9 (25.0-35.0) pg MCHC 32.7 (31.0-37.0) g/dL RDW 15.6 H (11.5-15.5) % Plt Count 197 (150-450) k/uL MPV 9.1 Neutrophils % 55 % Lymphocytes % 33 % Monocytes % 9 % Eosinophils % 1 % Basophils % 0 % Neutrophils # 2.2 (1.3-7.7) k/uL Lymphocytes # 1.3 (1.0-4.8) k/uL Monocytes # 0.4 (0-1.0) k/uL Eosinophils # 0.1 (0-0.7) k/uL Basophils # 0.0 (0-0.2) k/uL Hypochromasia Slight Macrocytosis Moderate PT 11.0 (9.0-12.0) sec INR 1.0 (<1.2) APTT 25.6 (22.0-30.0) sec Sodium 134 L (137-145) mmol/L Potassium 5.0 (3.5-5.1) mmol/L Chloride 101 (98-107) mmol/L Carbon Dioxide 23 (22-30) mmol/L Anion Gap 10 mmol/L BUN 28 H (7-17) mg/dL Creatinine 0.97 (0.52-1.04) mg/dL Est GFR (CKD-EPI)AfAm 77 (>60 ml/min/1.73 sqM) Est GFR (CKD-EPI)NonAf 67 (>60 ml/min/1.73 sqM) Glucose 109 H (74-99) mg/dL Plasma Lactic Acid Victor M (0.7-2.0) mmol/L Calcium 11.0 H (8.4-10.2) mg/dL Total Bilirubin 0.4 (0.2-1.3) mg/dL AST 69 H (14-36) U/L ALT 35 H (4-34) U/L Alkaline Phosphatase 85 (38-126) U/L Troponin I (0.000-0.034) ng/mL Total Protein 8.4 H (6.3-8.2) g/dL Albumin 4.8 (3.5-5.0) g/dL Urine Color Urine Appearance (Clear) Urine pH (5.0-8.0) Ur Specific [place] (1.001-1.035) Urine Protein (Negative) Urine Glucose (UA) (Negative) Urine Ketones (Negative) Urine Blood (Negative) Urine Nitrite (Negative) Urine Bilirubin (Negative) Urine Urobilinogen (<2.0) mg/dL Ur Leukocyte Esterase (Negative) Urine RBC (0-5) /hpf Urine WBC (0-5) /hpf Ur Squamous Epith Cells (0-4) /hpf Urine Bacteria (None) /hpf Hyaline Casts (0-2) /lpf Urine Mucus (None) /hpf Urine Opiates Screen (NotDetected) Ur Oxycodone Screen (NotDetected) Urine Methadone Screen (NotDetected) Ur Propoxyphene Screen (NotDetected) Ur Barbiturates Screen (NotDetected) Valproic Acid 147.2 H* ug/mL U Tricyclic Antidepress (NotDetected) Ur Phencyclidine Scrn (NotDetected) Ur Amphetamines Screen (NotDetected) U Methamphetamines Scrn (NotDetected) U Benzodiazepines Scrn (NotDetected) Urine Cocaine Screen (NotDetected) U Marijuana (THC) Screen (NotDetected) 06/03/21 06/03/21 06/03/21 Range/Units 11:01 11:21 11:34 WBC (3.8-10.6) k/uL RBC (3.80-5.40) m/uL Hgb (11.4-16.0) gm/dL Hct (34.0-46.0) % MCV (80.0-100.0) fL MCH (25.0-35.0) pg MCHC (31.0-37.0) g/dL RDW (11.5-15.5) % Plt Count (150-450) k/uL MPV Neutrophils % % Lymphocytes % % Monocytes % % Eosinophils % % Basophils % % Neutrophils # (1.3-7.7) k/uL Lymphocytes # (1.0-4.8) k/uL Monocytes # (0-1.0) k/uL Eosinophils # (0-0.7) k/uL Basophils # (0-0.2) k/uL Hypochromasia Macrocytosis PT (9.0-12.0) sec INR (<1.2) APTT (22.0-30.0) sec Sodium (137-145) mmol/L Potassium (3.5-5.1) mmol/L Chloride (98-107) mmol/L Carbon Dioxide (22-30) mmol/L Anion Gap mmol/L BUN (7-17) mg/dL Creatinine (0.52-1.04) mg/dL Est GFR (CKD-EPI)AfAm (>60 ml/min/1.73 sqM) Est GFR (CKD-EPI)NonAf (>60 ml/min/1.73 sqM) Glucose (74-99) mg/dL Plasma Lactic Acid Victor M 1.5 (0.7-2.0) mmol/L Calcium (8.4-10.2) mg/dL Total Bilirubin (0.2-1.3) mg/dL AST (14-36) U/L ALT (4-34) U/L Alkaline Phosphatase (38-126) U/L Troponin I <0.012 (0.000-0.034) ng/mL Total Protein (6.3-8.2) g/dL Albumin (3.5-5.0) g/dL Urine Color Yellow Urine Appearance Clear (Clear) Urine pH 6.5 (5.0-8.0) Ur Specific [place] 1.021 (1.001-1.035) Urine Protein Trace H (Negative) Urine Glucose (UA) Negative (Negative) Urine Ketones 1+ H (Negative) Urine Blood Negative (Negative) Urine Nitrite Negative (Negative) Urine Bilirubin Negative (Negative) Urine Urobilinogen <2.0 (<2.0) mg/dL Ur Leukocyte Esterase Trace H (Negative) Urine RBC 1 (0-5) /hpf Urine WBC 2 (0-5) /hpf Ur Squamous Epith Cells <1 (0-4) /hpf Urine Bacteria Rare H (None) /hpf Hyaline Casts 1 (0-2) /lpf Urine Mucus Rare H (None) /hpf Urine Opiates Screen Not Detected (NotDetected) Ur Oxycodone Screen Not Detected (NotDetected) Urine Methadone Screen Not Detected (NotDetected) Ur Propoxyphene Screen Not Detected (NotDetected) Ur Barbiturates Screen Not Detected (NotDetected) Valproic Acid ug/mL U Tricyclic Antidepress Not Detected (NotDetected) Ur Phencyclidine Scrn Not Detected (NotDetected) Ur Amphetamines Screen Not Detected (NotDetected) U Methamphetamines Scrn Not Detected (NotDetected) U Benzodiazepines Scrn Detected H (NotDetected) Urine Cocaine Screen Not Detected (NotDetected) U Marijuana (THC) Screen Not Detected (NotDetected) - EKG Data EKG shows normal: sinus rhythm, intervals (Ventricular rate of 66, [place] interval 0.138, QRS of 0.82, QTC of 0.467) Rate: normal Disposition Clinical Impression: Valproic acid toxicity, Altered mental status Disposition: ADMITTED IP TO THIS [facility] Condition: Fair Decision Date: 06/03/21 Decision Time: 13:37
[2021-06-03 11:52] LABS: Albumin 4.8 g/dL (3.5-5.0); Total Bilirubin 0.4 mg/dL (0.2-1.3); Total Protein 8.4 g/dL (6.3-8.2)
[2021-06-03 11:57] LABS: Basophils % (A) 0 %; Eosinophils # (A) 0.1 k/uL (0-0.7); Eosinophils % (A) 1 %; HCT 41.7 % (34.0-46.0); HGB 13.6 gm/dL (11.4-16.0); Hypochromasia Slight; Lymphocytes # (A) 1.3 k/uL (1.0-4.8); Lymphocytes % (A) 33 %; MCH 34.9 pg (25.0-35.0); MCHC 32.7 g/dL (31.0-37.0); MCV 106.8 fL (80.0-100.0); Macrocytosis Moderate; Mean Platelet Volume 9.1; Monocytes # (A) 0.4 k/uL (0-1.0); Monocytes % (A) 9 %; Neutrophils # (A) 2.2 k/uL (1.3-7.7); Neutrophils % (A) 55 %; Platelet Count 197 k/uL (150-450); RBC 3.91 m/uL (3.80-5.40); RDW 15.6 % (11.5-15.5)
[2021-06-03 12:00] LABS: Valproic Acid (Depakene) 147.2 ug/mL
[2021-06-03 12:11] LABS: Partial Thromboplastin Time 25.6 sec (22.0-30.0)
--- NOTE | 2021-06-03 12:28 | XR ---
EXAMINATION TYPE: XR chest 2V DATE OF EXAM: 06/03/2021 COMPARISON: Chest x-ray 11/18/2018 HISTORY: Altered mental status TECHNIQUE: Frontal and lateral views of the chest are obtained. FINDINGS: There is no focal air space opacity, pleural effusion, or pneumothorax seen. Lung volumes are low, patchy basilar density is present. The cardiac silhouette size is stable, heart size at the upper limit of normal. Surgical clips present in the upper abdomen. The osseous structures are inta ct. IMPRESSION: Expiratory rotated exam. Probable basilar atelectasis, follow-up as indicated.
[2021-06-03] MEDS: SODIUM CHLORIDE 0.9% 1,000 ML IV SCH ×2 (12:32→22:00)
--- NOTE | 2021-06-03 12:33 | CT ---
EXAMINATION TYPE: CT brain hussein cowan con DATE OF EXAM: 06/03/2021 COMPARISON: None HISTORY: Altered mental status, Dental work 05-10-2021: 3 teeth extracted, fall down flight of stairs CT DLP: 1646.[address] of the brain was performed. The ventricles, basal cisterns and sulci overlying the cerebral convexities demonstrate mild enlargem ent. There is no evidence for intracranial hemorrhage or sulcal effacement. There is decreased attenuatio n about the periventricular white matter and deep white matter of both cerebral hemispheres, compatib le with chronic small vessel ischemia. No mass effects are seen. If symptoms persist consider MRI. Osseous calvarium is intact. Right parietal occipital scalp hematoma. IMPRESSION: 1. Age related atrophic and chronic small vessel ischemic change without acute intracranial process seen at this time. CT Cervical Spine: Unenhanced CT of the cervical spine was performed with bone and soft tissue window settings submitted . Coronal and sagittal reconstruction is obtained. There is normal alignment and prevertebral soft tissues. No evidence for acute cervical fracture . Scattered degenerative disc disease and spondylosis. Moderate ventral spondylosis. Biapical scarring. IMPRESSION: 1. No evidence for acute fracture or subluxation of the cervical spine.
[2021-06-03] MEDS ORDERED: NALOXONE 0.4 MG/ML 1 ML VIAL IV PRN (14:17)
[2021-06-03 14:32] LABS: Appearance,Urine Clear (Clear); Bacteria,Urine Rare /hpf; Bilirubin,Urine Negative (Negative); Blood,Urine Negative (Negative); Color,Urine Yellow; Glucose,Urine (UA) Negative (Negative); Hyaline Casts,Urine 1 /lpf (0-2); Ketones,Urine 1+ (Negative); Leukocyte Esterase,Urine Trace (Negative); Mucus,Urine Rare /hpf; Nitrite,Urine Negative (Negative); PH, Urine 6.5 (5.0-8.0); Protein,Urine Trace (Negative); RBC,Urine 1 /hpf (0-5); Specific Gravity,Urine 1.021 (1.001-1.035); Squamous Epithelial Cell,Urine <1 /hpf (0-4); Urobilinogen,Urine <2.0 mg/dL (<2.0); WBC,Urine 2 /hpf (0-5)
[2021-06-03 14:43] LABS: Amphetamine Screen,Urine Not Detected (NotDetected); Benzodiazepines Screen,Urine Detected (NotDetected); Cocaine Screen,Urine Not Detected (NotDetected); Methadone Screen, Urine Not Detected (NotDetected); Opiate Screen,Urine Not Detected (NotDetected); Phencyclidine Screen,Urine Not Detected (NotDetected); Tricyclic Antidepressant,Urine Not Detected (NotDetected)
[2021-06-03 14:44] LABS: Barbiturate Screen,Urine Not Detected (NotDetected); Oxycodone Screen, Urine Not Detected (NotDetected); Urn Cannabinoid Scrn Not Detected (NotDetected)
[2021-06-03 20:32] LABS: Glucose,Whole Blood 101 mg/dL (75-99)
[2021-06-03] MEDS: lamoTRIgine 100 MG TAB PO SCH (22:00)
[2021-06-03] MEDS: ATORVASTATIN 10 MG TAB PO SCH (22:00)
[2021-06-03] MEDS: SULFAMETHOX-TMP 800-160MG 1 EACH TAB PO SCH (22:00)
[2021-06-03] MEDS ORDERED: TEMAZEPAM 15 MG CAP PO PRN (23:10)
[2021-06-04] MEDS: ACETAMINOPHEN TAB 500 MG TAB PO PRN ×2 (00:18→10:23)
[2021-06-04] MEDS: TEMAZEPAM 15 MG CAP PO SCH ×2 (00:19→20:10)
[2021-06-04] MEDS: SODIUM CHLORIDE 0.9% 1,000 ML IV SCH ×3 (04:06→20:08)
[2021-06-04] MEDS: LEVOTHYROXINE 25 MCG TAB PO SCH (08:06)
[2021-06-04] MEDS: lamoTRIgine 100 MG TAB PO SCH ×2 (08:06→20:09)
[2021-06-04] MEDS: SULFAMETHOX-TMP 800-160MG 1 EACH TAB PO SCH ×2 (08:06→20:10)
[2021-06-04] MEDS: lamoTRIgine 25 MG TAB PO SCH (08:06)
[2021-06-04] MEDS: FOLIC ACID 1 MG TAB PO SCH (08:06)
--- NOTE | 2021-06-04 09:06 | P.CNNES ---
History of Present Illness Consult date: 06/04/21 Requesting physician: Radames Arredondo Reason for Consult: valproic acid toxicity and altered mental status History of Present Illness: This is a 55-year-old woman with medical history of seizure, developmentally delayed who presented to the emergency department on 06/03/2021 with her caregiver for generalized weakness and balance is off. History is obtained from medical records. He notes the it is mentioned the that per the caregiver the patient had 3 teeth extraction on May 10 and was placed on amoxicillin. She was seen by her primary care doctor (Dr. Randall) stopped amoxicillin and placed her on Bactrim last week for urinary tract infection. As a result the patient has been complaining of the generalized weakness for the last 3 weeks, shortness of breath. It is reported the patient was walking down the steps the on 06/03/2021 and the she fell and hurt her head but she did not lose consciousness. Her balance has been off. Vision denies of any fevers, nausea or vomiting. Her last seizure was in 2007 according to the nurse that is documented. Upon seeing the patient she stated where her healthcare administrator and she stated "I want my new teeth". Patient's home medication consist of Depakote thousand milligram 1 tablet twice a day an additional 250 mg daily at bedtime, Lamictal 125 mg daily, 150 mg daily at bedtime, folic acid 1 mg daily, Synthroid, simvastatin, Bactrim, Per the nurse the patient has not had any seizure like activity since she was in our facility. Some of the workup in the hospital consisted of: Initial vital signs: Initial blood pressure is 75/42, heart rate of 73, initial temperature of 95.8 Fahrenheit temporal artery, respiratory of 18, and pulse ox of 97% at room air. Repeated blood pressure is 114/62. Patient's blood pressure has been in the 110s over 60s. I'm not sure if the the initial blood pressure was accurate. CBC with differential is the thing that was remarkable is MCV of 106.8 which is elevated and RDW of 15.6 otherwise CBC with differential is unremarkable. Chemistry panel is the sodium is minimally low of 134. Initial serum glucose is 109, AST of 69 ALT of 39 which are elevated but the ammonia level is 19 which is within normal limits. Calcium is 11.0 or 2 slightly elevated Valproic acid is 147.2 which is toxic level (normal is 50-120). Urine drug screen is positive for benzo otherwise rest are negative. CT head: Is reported as age related atrophic and chronic small vessel ischemic change without acute intracranial process seen at this time. I personally reviewed the CT of the head and I did not appreciate any acute or subacute ischemic stroke but I see that the patient has atrophy over the bilateral parietal region CT Cervical is reported as No evidence of acute fracture or subluxation of the cervical spine. Review of Systems Via system is limited with apparent positive and negative as per HPI. Past Medical History Past Medical History: Hyperlipidemia, Seizure Disorder Additional Past Medical History / Comment(s): Developmentally disabled, LAST SEIZURE 2007 History of Any Multi-Drug Resistant Organisms: None Reported Past Surgical History: Breast Surgery, Cholecystectomy Additional Past Surgical History / Comment(s): Benign excisional biopsy bilateral breasts. Past Anesthesia/Blood Transfusion Reactions: No Reported Reaction Past Psychological History: No Psychological Hx Reported Smoking Status: Never smoker Past Alcohol Use History: None Reported Past Drug Use History: None Reported - Past Family History Mother Family Medical History: No Reported History Brother(s) Family Medical History: Cancer Medications and Allergies Home Medications Medication Instructions Recorded Confirmed Type Divalproex [Depakote] 1,000 mg PO BID@0800,209906/23/18 06/03/21 History Divalproex [Depakote] 250 mg PO HS 06/23/18 06/03/21 History Folic Acid 1 mg PO DAILY@79906/23/18 06/03/21 History Levothyroxine Sodium [Synthroid] 25 mcg PO DAILY@79906/23/18 06/03/21 History Simvastatin [Zocor] 20 mg PO HS 06/23/18 06/03/21 History lamoTRIgine [LaMICtal] 150 mg PO HS 05/22/20 06/03/21 History Sulfamethox-Tmp 800-160Mg [Bactrim 1 tab PO BID@799,209906/03/21 06/03/21 History DS 800-160 mg] lamoTRIgine 100 mg PO DAILY@79906/03/21 06/03/21 History lamoTRIgine [LaMICtal] 25 mg PO DAILY@79906/03/21 06/03/21 History Allergies Allergy/AdvReac Type Severity Reaction Status Date / Time No Known Allergies Allergy Verified 06/03/21 12:33 Physical Examination - Vital Signs Vital Signs: Vital Signs Temp Pulse Pulse Resp BP BP Pulse Ox 06/04/21 04:40 97.8 F 71 20 121/74 97 06/04/21 01:00 80 137/71 96 06/03/21 19:20 18 06/03/21 19:10 97.6 F 75 18 121/64 96 06/03/21 17:27 97.6 F 74 20 115/60 97 06/03/21 14:54 97.5 F L 75 20 118/60 99 06/03/21 12:27 95.8 F L 73 20 114/62 100 06/03/21 10:39 73 18 75/42 97 Intake and Output 06/03/21 06/04/21 06/04/21 22:59 06:59 14:59 Intake Total 100 1560 Balance 100 1560 Intake: Intake, IV Titration 1560 Amount Sodium Chloride 0.9% 1, 1560 000 ml @ 130 mls/hr IV . Q7H42M [facility] Rx#:[id number] Oral 100 Other: Voiding Method Toilet Diaper Weight 70.307 kg GENERAL: The patient is lying in bed and is not in acute distress. CHEST: The heart rate is regular rate rhythm. No murmurs to auscultation. LUNG: Clear to auscultation bilaterally no wheezing noted throughout. Not labored breathing. ABDOMEN/GI: Bowel sounds present in all 4 quadrants. No tenderness to palpation throughout. NEUROLOGICAL: Limited because of history of developmental delay. Higher mental function: The patient is awake, alert, oriented to self only. She is able to name objects (watch, pen and glasses). Patient is following simple commands (thumbs up and opening and closing eyes). Language is limited to assess because no aphasia noted. During examination she was asking for her special needs caregiver. Cranial nerves: The pupils are round, equal and reactive to light. Visual park are hard to assess. Extraocular movement is hard to assess fully but was tracking throughtout the room and no appreciable nystagmus. The facial strength is normal throughout. No dysarthria is noted. Shoulder shrug is normal bilaterally. Motor: The strength is moving all extremities above gravity without drift. Normal tone and bulk. Cerebellum: Hard to assess. Sensation: Sensation is normal to touch throughout. Reflexes (right/left): 2+ throughout. Plantars are mute bilaterally. Results - Laboratory Findings CBC and BMP: 06/03/21 11:06/03/21 11: Abnormal Lab Findings: Abnormal Labs 06/03/21 06/03/21 06/03/21 11: 11: 11:21 MCV 106.8 H RDW 15.6 H Sodium 134 L BUN 28 H Glucose 109 H POC Glucose (mg/dL) Calcium 11.0 H AST 69 H ALT 35 H Total Protein 8.4 H Urine Protein Trace H Urine Ketones 1+ H Ur Leukocyte Esterase Trace H Urine Bacteria Rare H Urine Mucus Rare H Valproic Acid 147.2 H* U Benzodiazepines Scrn Detected H 06/03/21 20:30 MCV RDW Sodium BUN Glucose POC Glucose (mg/dL) 101 H Calcium AST ALT Total Protein Urine Protein Urine Ketones Ur Leukocyte Esterase Urine Bacteria Urine Mucus Valproic Acid U Benzodiazepines Scrn Assessment and Plan Assessment: * Altered mental status (toxic encephalopathy), unsteady gait is due to the medication effect (Toxic levels of Valproic acid 147 (normal level is 50- 120)). Possible due to interaction with other medication (Bactrim) which might increase increase it especially since patient is on very high dose of Valproic acid--mentation is improving (per nurse likely she is back to baseline) * History of seizure * Developmentally delayed Plan: * Valproic acid was held for now. I ordered repeat Valproic acid level total and free. Recommend consideration of switching valproic acid if the patient continues to have toxic level or has side effects such as unsteady gait and dizziness confusion to another medication and we'll defer that as an outpatient. If the levels is therapeutic during the hospital stay it will consider starting the patient on valproic acid 750mg one tablet twice a day. * Lamictal 125 mg daily, 150 mg daily at bedtime was restarted. * I ordered vitamin B12, folate since she had macrocytosis. I ordered TSH level. * I started the patient on vitamin D3 1000 units daily especially since antiepileptic drugs (Valproic acid) which can cause osteoperosis. * Consulted physical therapy and occupational therapy. * We'll defer the rest of the medical management to the primary team. * Upon discharge the patient needs to follow-up with her neurologist within 1-2 weeks. The plan is discussed with the patient's nurse. Thank you for the consultation. UPDATE: I spoke with her caregiver (Rosamaria) and she stated that patient and stated it all started with tooth extraction recently. She felt her gait was unsteady and dizziness yesterday. She stated the patient follows-up with Dr. Blanca Murrell and has not had any of antiepileptic drug change in the about 3-4 years. Her last seizure was in 2007 and had jerking of extremities. She is able to walk unassisted, feed, uses bathroom on own. She is only oriented to self only. The patient is developmental delayed and has intellegence of 5-year-old according to the caregiver. She does not cook but needs supervision. She has been in her family foster home at age [id number]. César Light MD Neuro-Hospitalist Time with Patient: Greater than 30
[2021-06-04] MEDS: CHOLECALCIFEROL 25 MCG (1000 IU) TABLET PO SCH (10:22)
--- NOTE | 2021-06-04 15:47 | P.HPIM ---
History of Present Illness H&P Date: 06/04/21 Chief Complaint: Change in mental status with Valproic acid toxicity This a 55-year-old female, developmentally delayed , [place], presented to the ER with her caregiver Rosamaria. Information being obtained from chart as caregiver currently not at the bedside. Apparently on May 10 patient had 3 teeth extracted, based on amoxicillin. Developed UTI, followed up with PCP with antibiotic adjusted to Bactrim last week. Renal function stable .Urine culture from 05/28 reporting no growth. UA report regarding rare bacteria, trace leukocytes, negative nitrates. Afebrile, normal WBC. Toxicology screen detected benzodiazepines, valproic acid 147.2 on admission , repeat level pending. Patient developed increased generalized weakness over the last 3 weeks accomp anied by shortness of breath. Chest x-ray reporting probable basilar atelectasis .Maintaining O2 sats in the high 90s on room air .Sustained a fall going down the stairs on 06/03/2021 with no syncope reported. CT brain/C-spine reporting no acute intracranial process, no evidence for acute fracture or subluxation of the cervical spine. Lactic acid 1.5, ammonia 19, troponin negative 1. Review of Systems Review of systems unable to be performed, limited as patient is developmentally delayed. This morning recognizes PCP at bedside, Dr. Randall, conversing. PCP meg milan patient is currently at baseline. Past Medical History Past Medical History: Hyperlipidemia, Seizure Disorder Additional Past Medical History / Comment(s): Developmentally disabled, LAST SEIZURE 2007 History of Any Multi-Drug Resistant Organisms: None Reported Past Surgical History: Breast Surgery, Cholecystectomy Additional Past Surgical History / Comment(s): Benign excisional biopsy bilateral breasts. Past Anesthesia/Blood Transfusion Reactions: No Reported Reaction Past Psychological History: No Psychological Hx Reported Smoking Status: Never smoker Past Alcohol Use History: None Reported Past Drug Use History: None Reported - Past Family History Mother Family Medical History: No Reported History Brother(s) Family Medical History: Cancer Medications and Allergies Home Medications Medication Instructions Recorded Confirmed Type Divalproex [Depakote] 1,000 mg PO BID@0800,2100 06/23/18 06/03/21 History Divalproex [Depakote] 250 mg PO HS 06/23/18 06/03/21 History Folic Acid 1 mg PO DAILY@0800 06/23/18 06/03/21 History Levothyroxine Sodium [Synthroid] 25 mcg PO DAILY@0800 06/23/18 06/03/21 History Simvastatin [Zocor] 20 mg PO HS 06/23/18 06/03/21 History lamoTRIgine [LaMICtal] 150 mg PO HS 05/22/20 06/03/21 History Sulfamethox-Tmp 800-160Mg [Bactrim 1 tab PO BID@0800,2100 06/03/21 06/03/21 History DS 800-160 mg] lamoTRIgine 100 mg PO DAILY@0800 06/03/21 06/03/21 History lamoTRIgine [LaMICtal] 25 mg PO DAILY@0800 06/03/21 06/03/21 History Allergies Allergy/AdvReac Type Severity Reaction Status Date / Time No Known Allergies Allergy Verified 06/03/21 12:33 Physical Exam Vitals: Vital Signs Temp Pulse Pulse Resp BP BP Pulse Ox 06/04/21 04:40 97.8 F 71 20 121/74 97 06/04/21 01:00 80 137/71 96 06/03/21 19:20 18 06/03/21 19:10 97.6 F 75 18 121/64 96 06/03/21 17:27 97.6 F 74 20 115/60 97 06/03/21 14:54 97.5 F L 75 20 118/60 99 06/03/21 12:27 95.8 F L 73 20 114/62 100 06/03/21 10:39 73 18 75/42 97 Intake and Output 06/03/21 06/04/21 06/04/21 22:59 06:59 14:59 Intake Total 100 1560 Balance 100 1560 Intake: Intake, IV Titration 1560 Amount Sodium Chloride 0.9% 1, 1560 000 ml @ 130 mls/hr IV . Q7H42M [facility] Rx#:[id number] Oral 100 Other: Voiding Method Toilet Toilet Diaper Diaper Weight 70.307 kg PHYSICAL EXAM: VITAL SIGNS: As above GENERAL: Sitting up in bed, eating breakfast, no acute distress, conversing with Dr. Prakash ANGELOENT: Conjunctivae normal. Pupils equal. Oral mucosa moist. Right parietal /occipital scalp hematoma. NECK: Supple, No JVD. No thyroid enlargement. No LNs CARDIOVASCULAR: S1, S2 regular.No murmur RESPIRATION: Breath sounds diminished in the bases. No rhonchi or crackles. No bronchial breathing. ABDOMEN: Soft, nontender . No guarding. no masses palpable. No ascites, No hepatosplenomegaly.Bowel sounds heard. LEGS: No edema. no swelling PSYCHIATRY: Alert and oriented X1, mood and affect calm, cooperative NERVOUS SYSTEM: Limited secondary to developmental delayed. Recognizes PCP, Dr. Randall and calls him by name, follows simple commands .Strength and sensation grossly intact.. Skin: no lesions, no rash Joints: No active swelling. No inflammation. Lymphatic system. No LN neck axilla or groin. Results CBC & Chem 7: 06/03/21 11:01 06/03/21 11:01 Labs: Abnormal Lab Results - Last 24 Hours (Table) 06/03/21 06/03/21 06/03/21 Range/Units 11:01 11:01 11:21 MCV 106.8 H (80.0-100.0) fL RDW 15.6 H (11.5-15.5) % Sodium 134 L (137-145) mmol/L BUN 28 H (7-17) mg/dL Glucose 109 H (74-99) mg/dL POC Glucose (mg/dL) (75-99) mg/dL Calcium 11.0 H (8.4-10.2) mg/dL AST 69 H (14-36) U/L ALT 35 H (4-34) U/L Total Protein 8.4 H (6.3-8.2) g/dL Urine Protein Trace H (Negative) Urine Ketones 1+ H (Negative) Ur Leukocyte Esterase Trace H (Negative) Urine Bacteria Rare H (None) /hpf Urine Mucus Rare H (None) /hpf Valproic Acid 147.2 H* ug/mL U Benzodiazepines Scrn Detected H (NotDetected) 06/03/21 Range/Units 20:30 MCV (80.0-100.0) fL RDW (11.5-15.5) % Sodium (137-145) mmol/L BUN (7-17) mg/dL Glucose (74-99) mg/dL POC Glucose (mg/dL) 101 H (75-99) mg/dL Calcium (8.4-10.2) mg/dL AST (14-36) U/L ALT (4-34) U/L Total Protein (6.3-8.2) g/dL Urine Protein (Negative) Urine Ketones (Negative) Ur Leukocyte Esterase (Negative) Urine Bacteria (None) /hpf Urine Mucus (None) /hpf Valproic Acid ug/mL U Benzodiazepines Scrn (NotDetected) Thrombosis Risk Factor Assmnt - Choose All That Apply Each Factor Represents 1 point: Age 41-60 years Thrombosis Risk Factor Assessment Total Risk Factor Score: 1 Thrombosis Risk Factor Assessment Level: Low Risk Assessment and Plan Assessment: Acute toxic encephalopathy secondary to valproic acid toxicity Fall secondary to unsteady gait suspect related to the above . Right parietal occipital scalp hematoma. Degenerative disc disease Bibasilar atelectasis Recent teeth extraction, followed by recent UTI with change in antibiotics from amoxicillin to Bactrim. History of Seizure disorder, last seizure reported 2007 Developmentally delayed Plan: Continue on current medication regime ,monitoring and symptomatic treatment. Valproic acid remains on hold with repeat level ordered. Maintain IV fluid hydration. Evaluated by neurology with recommendations noted and appreciated. PT/OT consulted. The impression and plan of care has been dictated as directed. : I performed a history and examination of this patient, discussed the same with the dictator. I agree with the dictator's note ,documented as a scribe. Any additional findings or plans will be noted.
[2021-06-04] MEDS: PANTOPRAZOLE 40 MG/10 ML VIAL IVP SCH (16:59)
[2021-06-04] MEDS: DIVALPROEX 500 MG TABLET.DR PO SCH (17:58)
[2021-06-04] MEDS: DIVALPROEX 250 MG TABLET.DR PO SCH (17:58)
[2021-06-04] MEDS: ATORVASTATIN 10 MG TAB PO SCH (20:09)
[2021-06-04 22:41] LABS: Folate, Serum 21.8 ng/mL
[2021-06-05] MEDS: ACETAMINOPHEN TAB 500 MG TAB PO PRN (00:17)
[2021-06-05] MEDS: SODIUM CHLORIDE 0.9% 1,000 ML IV SCH ×2 (03:47→12:08)
[2021-06-05] MEDS: lamoTRIgine 100 MG TAB PO SCH (08:19)
[2021-06-05] MEDS: CHOLECALCIFEROL 25 MCG (1000 IU) TABLET PO SCH (08:19)
[2021-06-05] MEDS: PANTOPRAZOLE 40 MG/10 ML VIAL IVP SCH (08:19)
[2021-06-05] MEDS: LEVOTHYROXINE 25 MCG TAB PO SCH (08:19)
[2021-06-05] MEDS: FOLIC ACID 1 MG TAB PO SCH (08:19)
[2021-06-05] MEDS: DIVALPROEX 500 MG TABLET.DR PO SCH (08:20)
[2021-06-05] MEDS: lamoTRIgine 25 MG TAB PO SCH (08:20)
[2021-06-05] MEDS: DIVALPROEX 250 MG TABLET.DR PO SCH (08:20)
[2021-06-05] MEDS: SULFAMETHOX-TMP 800-160MG 1 EACH TAB PO SCH (08:53)
--- NOTE | 2021-06-05 10:01 | P.PN ---
Subjective Progress Note Date: 06/05/21 The patient is seen at bedside and per nurse no further seizures. Her Valproic acid level yesterday was 47.2 (subtherapeutic) but her dose was stopped since it was toxic. Therefore restarted Valproic acid and slight lower dose of 750mg 1 tab bid. Objective - Vital Signs Vital signs: Vital Signs Temp 97.8 F 06/05/21 04:36 Pulse 71 06/05/21 04:36 Resp 16 06/05/21 04:36 BP 110/65 06/05/21 04:36 Pulse Ox 97 06/05/21 04:36 Intake & Output 06/04/21 06/05/21 06/05/21 18:59 06:59 18:59 Intake Total 1560 Balance 1560 Intake: Intake, IV Titration 1560 Amount Sodium Chloride 0.9% 1, 1560 000 ml @ 130 mls/hr IV . Q7H42M [facility] Rx#:[id number] Other: Voiding Method Toilet Toilet Toilet Diaper Diaper Diaper # Voids 3 - Exam GENERAL: The patient is sitting in a recliner chair and is not in acute distress. NEUROLOGICAL: Limited because of history of developmental delay. Higher mental function: The patient is awake, alert, oriented to self only. She is able to name objects (watch, pen and glasses). Patient is following simple commands (thumbs up and opening and closing eyes). Language is limited to assess because no aphasia noted. During examination she was asking for her palliative care nurse practitioner. Cranial nerves: The pupils are round, equal and reactive to light. Visual park are hard to assess. Extraocular movement is hard to assess fully but was tracking throughtout the room and no appreciable nystagmus. The facial strength is normal throughout. No dysarthria is noted. Shoulder shrug is normal bilaterally. Motor: Gait is deferred. The strength is moving all extremities above gravity without drift. Normal tone and bulk. Cerebellum: Hard to assess. Sensation: Sensation is normal to touch throughout. Reflexes (right/left): 2+ throughout. Plantars are mute bilaterally. WORK-UP: Vitamin B12: 544, serum folate 21.8 and TSH: 5.03 (all within normal limits). Valproic acid is 147.2 which is toxic level (normal is 50-120) on presentation. Her Valproic acid level yesterday was 47.2 (subtherapeutic) but her dose was stopped since it was toxic. Urine drug screen is positive for benzo otherwise rest are negative. CT head: Is reported as age related atrophic and chronic small vessel ischemic change without acute intracranial process seen at this time. I personally reviewed the CT of the head and I did not appreciate any acute or subacute ischemic stroke but I see that the patient has atrophy over the bilateral parietal region CT Cervical is reported as No evidence of acute fracture or subluxation of the cervical spine. - Labs CBC & Chem 7: 06/03/21 11:01 06/03/21 11:01 Labs: Microbiology - Last 24 Hours (Table) 06/03/21 11:01 Blood Culture - Preliminary Blood No Growth after 24 hours 06/03/21 11:14 Blood Culture - Preliminary Blood No Growth after 24 hours Assessment and Plan Assessment: * Altered mental status (toxic encephalopathy), unsteady gait is due to the medication effect (Toxic levels of Valproic acid 147 (normal level is 50- 120)). Possible due to interaction with other medication (Bactrim) which might increase increase it especially since patient is on very high dose of Valproic acid--mentation is improved * History of seizure * Developmentally delayed Plan: * Restarted Valproic acid but lower dose 750mg one tablet twice a day. Recommend consideration of switching valproic acid if the patient continues to have toxic level or has side effects such as unsteady gait and dizziness confusion to another medication and we'll defer that as an outpatient. * Continue her home dose of Lamictal 125 mg daily, 150 mg daily. * I ordered vitamin B12, folate since she had macrocytosis. I ordered TSH level. * I started the patient on vitamin D3 1000 units daily especially since antiepileptic drugs (Valproic acid) which can cause osteoperosis. * Consulted physical therapy and occupational therapy. * We'll defer the rest of the medical management to the primary team. * Upon discharge the patient needs to follow-up with her neurologist (Blanca Murrell) within 1-2 weeks. The plan is discussed with the patient's nurse and her palliative care nurse practitioner (Rosamaria). There is no further neurological work-up. César Light MD Neuro-Hospitalist Time with Patient: Less than 30
--- NOTE | 2021-06-05 11:35 | P.DS ---
Providers Date of admission: 06/03/21 15:07 Expected date of discharge: 06/12/21 Attending physician: Mango Randall Consults: 06/03/21 14:17 Consult Physician Urgent Consulting Provider: César Light Consult Reason/Comments: valproic acid toxicity, altered mental status Do you want consulting provider notified?: Yes Primary care physician: Mango Randall Hospital Course: Final Diagnoses: Acute toxic encephalopathy secondary to valproic acid toxicity Fall secondary to unsteady gait suspect related to the above . Right parietal occipital scalp hematoma. Degenerative disc disease Bibasilar atelectasis Recent teeth extraction, followed by recent UTI with change in antibiotics from amoxicillin to Bactrim. History of Seizure disorder, last seizure reported 2007 Developmentally delayed Hospital course:This a 55-year-old female, developmentally delayed , lives in a shelter, presented to the ER with her caregiver Rosamaria. Information being obtained from chart as caregiver currently not at the bedside. Apparently on May 10 patient had 3 teeth extracted with amoxicillin prescribed. Developed UTI, followed up with PCP with antibiotic adjusted to Bactrim last week. Renal function stable .Urine culture from 05/28 reporting no growth. UA report regarding rare bacteria, trace leukocytes, negative nitrates. Afebrile, normal WBC. Toxicology screen detected benzodiazepines, valproic acid 147.2 on admission , repeat level pending. Patient developed increased generalized weakness over the last 3 weeks accompanied by shortness of breath. Chest x-ray reporting probable basilar atelectasis .Maintaining O2 sats in the high 90s on room air .Sustained a fall going down the stairs on 06/03/2021 with no syncope reported. CT brain/C-spine reporting no acute intracranial process, no evidence for acute fracture or subluxation of the cervical spine. Lactic acid 1.5, ammonia 19, troponin negative 1. Repeat valproic acid level sub-therapeutic, 47.2 with the holding of valproic acid. Evaluated by neurology. Valproic acid resumed at a slightly lower dose of 750 mg twice a day. Vitamin D3 initiated to decrease risk of osteoporosis associated with antiepileptic drugs. Bactrim discontinued secondary to potential for interaction with other medication.Neurology recommending consideration of switching valproic acid if the patient continues to have toxic level or has side effects such as unsteady gait and dizziness confusion to another medication and we'll defer that as an outpatient. Home dose Lamictal maintained. Evaluated by PT, requires supervision/assistance with overall ability-refer to PTs note. Significant clinical improvement-sensorium improved. Cleared by neurology for discharge. Patient will be discharged to shelter in a stable condition with guarded prognosis. The impression and plan of care has been dictated as directed. : I performed a history and examination of this patient, discussed the same with the dictator. I agree with the dictator's note ,documented as a scribe. Any additional findings or plans will be noted. Patient Condition at Discharge: Stable Plan - Discharge Summary Discharge Rx Participant: Yes New Discharge Prescriptions: New Acetaminophen Tab [Tylenol] 500 mg PO Q6HR PRN tab PRN Reason: Fever And/ Or Pain Cholecalciferol [Vitamin D3 (25 Mcg = 1000 Iu)] 25 mcg PO DAILY #30 tablet Continue Simvastatin [Zocor] 20 mg PO HS Folic Acid 1 mg PO DAILY@0800 Levothyroxine Sodium [Synthroid] 25 mcg PO DAILY@0800 lamoTRIgine [LaMICtal] 150 mg PO HS Sulfamethox-Tmp 800-160Mg [Bactrim DS 800-160 mg] 1 tab PO BID@08,2099 lamoTRIgine [LaMICtal] 25 mg PO DAILY@0800 lamoTRIgine 100 mg PO DAILY@0800 Changed Divalproex [Depakote] 500 mg PO BID@0800,2099 #0 Divalproex [Depakote] 250 mg PO BID #0 Discharge Medication List Folic Acid 1 mg PO DAILY@0800 06/23/18 [History] Levothyroxine Sodium [Synthroid] 25 mcg PO DAILY@0800 06/23/18 [History] Simvastatin [Zocor] 20 mg PO HS 06/23/18 [History] lamoTRIgine [LaMICtal] 150 mg PO HS 05/22/20 [History] Sulfamethox-Tmp 800-160Mg [Bactrim DS 800-160 mg] 1 tab PO BID@0800,2100 06/03/21 [History] lamoTRIgine 100 mg PO DAILY@0800 06/03/21 [History] lamoTRIgine [LaMICtal] 25 mg PO DAILY@0800 06/03/21 [History] Acetaminophen Tab [Tylenol] 500 mg PO Q6HR PRN tab 06/05/21 [Rx] Cholecalciferol [Vitamin D3 (25 Mcg = 1000 Iu)] 25 mcg PO DAILY #30 tablet 06/05 [Rx] Divalproex [Depakote] 250 mg PO BID #0 06/05/21 [Rx] Divalproex [Depakote] 500 mg PO BID@0800,2100 #0 06/05/21 [Rx] Follow up Appointment(s)/Referral(s): Mango Ranadll DO [Primary Care Provider] - 06/12/21 9:20 am Elise Murrell MD [REFERRING] - 06/21/21 1:00 pm Activity/Diet/Wound Care/Special Instructions: Neurology recommending consideration of switching valproic acid if the patient continues to have toxic level or has side effects such as unsteady gait and dizziness confusion to another medication and we'll defer that as an outpatient. PT Discharge Disposition: HOME WITH HOME HEALTH SERVICES
[2021-06-05 12:23] VITALS: BP 104/46; PULSE 63; RESP 17; TEMP 97.7
== END 2021-06-05 14:30 | disposition home health service (06) ==
LOC: EC 10:38 → INTOOBSV 15:07 → 5NMEDONC 15:07 → UNDODISIN 06-05 14:30
PROVIDERS: ADMIT Family Medicine; ATTEND Family Medicine
DX: G92 Toxic encephalopathy (principal); T42.6X5A Adverse effect of other antiepileptic and sedative-hypnotic drugs, initial encounter; R26.81 Unsteadiness on feet; S00.03XA Contusion of scalp, initial encounter; J98.11 Atelectasis; G40.909 Epilepsy, unspecified, not intractable, without status epilepticus; R62.50 Unspecified lack of expected normal physiological development in childhood; E78.5 Hyperlipidemia, unspecified; D75.89 Other specified diseases of blood and blood-forming organs; N39.0 Urinary tract infection, site not specified; R53.1 Weakness; W10.9XXA Fall (on) (from) unspecified stairs and steps, initial encounter; Z90.49 Acquired absence of other specified parts of digestive tract; Z79.899 Other long term (current) drug therapy; Z79.890 Hormone replacement therapy; Z80.9 Family history of malignant neoplasm, unspecified
CPT/HCPCS: 96376; 96361 ×4; 96374; 99285; 36415; 93005; 97530; 97162; 97535; 97165; 80164 ×2; 80165; 80053; 84443; 82607; 82140; 82746; 83605; 84484; 85025; 85610; 85730; 81001; 87040; 80306; 71046; 72125; 70450; G0378 ×3; C9113 ×2; 96360

== ENCOUNTER 2021-08-05 09:39 | Emergency (ER) | payer OTHER ==
[2021-08-05] MEDS ORDERED: IBUPROFEN 600 MG TAB PO STA (10:29)
--- NOTE | 2021-08-05 10:46 | ED ---
General Adult HPI - General Chief complaint: Psychiatric Symptoms Stated complaint: EPS eval Time Seen by Provider: 08/05/21 09:57 Source: RN notes reviewed, old records reviewed, Caregiver Mode of arrival: ambulatory Limitations: altered mental status - History of Present Illness Initial comments: I evaluated the patient when she was placed in a room. Patient is a 55-year-old female with past medical history remarkable for developmental delay, behavioral outburst who presents emergency department after being brought by her caretakers for behavioral outburst. She is currently in the process of extensive dental work this week, and when she found that she wasn't getting her bridge yesterday but rather later, she became upset and was agitated. She attempted to run away from home. They've noticed that this is increased lately. She kicked something with her right foot and she now has bruising over her right big toe. Patient voices no other acute complaints at this time. Patient's caregivers have no other acute complaints at this time. She is on seizure medications for epilepsy but no other psychiatric or behavioral medications. They present at this time over increased aggressiveness for the patient is difficulty to control her for her safety. Patient is no acute complaints at this time is likely. - Related Data Home Medications Medication Instructions Recorded Confirmed Folic Acid 1 mg PO DAILY@0800 06/23/18 06/03/21 Levothyroxine Sodium [Synthroid] 25 mcg PO DAILY@0800 06/23/18 06/03/21 Simvastatin [Zocor] 20 mg PO HS 06/23/18 06/03/21 lamoTRIgine [LaMICtal] 150 mg PO HS 05/22/20 06/03/21 lamoTRIgine 100 mg PO DAILY@0800 06/03/21 06/03/21 lamoTRIgine [LaMICtal] 25 mg PO DAILY@0800 06/03/21 06/03/21 Previous Rx's Medication Instructions Recorded Acetaminophen Tab [Tylenol] 500 mg PO Q6HR PRN tab 06/05/21 Cholecalciferol [Vitamin D3 (25 25 mcg PO DAILY #30 tablet 06/05/21 Mcg = 1000 Iu)] Divalproex [Depakote] 250 mg PO BID tablet 06/05/21 Divalproex [Depakote] 500 mg PO BID@0800,2100 #0 06/05/21 Allergies Allergy/AdvReac Type Severity Reaction Status Date / Time No Known Allergies Allergy Verified 08/05/21 09:50 Review of Systems ROS Statement: Those systems with pertinent positive or pertinent negative responses have been documented in the HPI. Review of Systems: CONST: Denies fever EYES: Denies blurry vision ENT: Denies nasal congestion C/V: Denies Chest pain RESP: Denies shortness of breath GI: Denies abdominal pain : Denies dysuria SKIN: Denies rash. MSK: Endorses right big toe pain. NEURO: Denies headache PSYCH: Denies suicidal and homicidal ideations/plans/attempts. Denies visual or auditory hallucinations. ROS Other: All systems not noted in ROS Statement are negative. Past Medical History Past Medical History: Hyperlipidemia, Seizure Disorder Additional Past Medical History / Comment(s): Developmentally disabled, LAST SEIZURE 2007 History of Any Multi-Drug Resistant Organisms: None Reported Past Surgical History: Breast Surgery, Cholecystectomy Additional Past Surgical History / Comment(s): Benign excisional biopsy bilateral breasts. Past Anesthesia/Blood Transfusion Reactions: No Reported Reaction Past Psychological History: No Psychological Hx Reported Smoking Status: Never smoker Past Alcohol Use History: None Reported Past Drug Use History: None Reported - Past Family History Mother Family Medical History: No Reported History Brother(s) Family Medical History: Cancer General Exam - General Exam Comments Initial Comments: General: Appears in no acute distress. HEAD: Normal with no signs of head trauma. EYES: PERRLA, EOMI, conjunctiva normal, no discharge. ENT: Hearing grossly intact, normal oropharynx. RESPIRATORY: Clear breath sounds bilaterally. No wheezes, rales, or rhonchi. C/V: Regular rate and rhythm. S1 and S2 auscultated, no edema, peripheral pulses 2+ and intact throughout ABD: Abd is soft, nontender, nondistended EXT: Pain range of motion of the right MTP joint of the great toe. Pain with range of motion. Able to ambulate on it. SKIN: Bruising over the right MTP joint of the great toe. NEURO: Alert and oriented to her baseline. No focal deficits. Limitations: altered mental status Course Vital Signs 08/05/21 09:45 Pulse Rate 91 Respiratory 18 Rate Blood Pressure 104/60 O2 Sat by Pulse 96 Oximetry Medical Decision Making - Medical Decision Making Based on the patient's presentation and physical exam, I would like EPS reevaluated the patient. She is having increasing aggressive outbursts and behavioral outbursts at home, and family members believe they're difficult to control at this time. She is currently not on any medications for at least therefore BAT as well as UDS will be ordered. For the patient's right big toe we will obtain an x-ray of the foot she'll be given Motrin. Patient and family members were in agreement with this plan. Patient's x-ray revealed no signs of acute fracture or subluxation of the patien t's right third toe. Patient is now medically cleared for evaluation by psychiatry. Disposition psychiatric evaluation. Psychiatry evaluated the patient and didn't patient is stable for discharge home. They did request,as the patient was concerned for possible UTI that I obtain urinalysis to rule out possibility of UTI. Urinalysis was obtained and showed no signs of acute UTI. Patient has no symptoms otherwise. I believe it is safer to be discharged home into the care of her caregivers. They were in agreement this plan. I instructed the patient to follow up with their PCP in the next 3 days. I explained that the patient should return to the emergency department if they experience any worsening symptoms. Strict return precautions were discussed with the patient. The patient expressed understanding of these instructions. I answered all questions that the patient had. The patient was discharged home in fair condition with their prescriptions and follow up information. - Lab Data Lab Results 08/05/21 08/05/21 Range/Units 14:09 14:09 Urine Color Yellow Urine Appearance Clear (Clear) Urine pH 6.0 (5.0-8.0) Ur Specific [place] 1.042 H (1.001-1.035) Urine Protein 1+ H (Negative) Urine Glucose (UA) Negative (Negative) Urine Ketones 2+ H (Negative) Urine Blood Trace H (Negative) Urine Nitrite Negative (Negative) Urine Bilirubin Negative (Negative) Urine Urobilinogen 2.0 (<2.0) mg/dL Ur Leukocyte Esterase Trace H (Negative) Urine RBC 3 (0-5) /hpf Urine WBC 2 (0-5) /hpf Ur Squamous Epith Cells 1 (0-4) /hpf Urine Mucus Moderate H (None) /hpf Urine Opiates Screen Not Detected (NotDetected) Ur Oxycodone Screen Not Detected (NotDetected) Urine Methadone Screen Not Detected (NotDetected) Ur Propoxyphene Screen Not Detected (NotDetected) Ur Barbiturates Screen Not Detected (NotDetected) U Tricyclic Antidepress Not Detected (NotDetected) Ur Phencyclidine Scrn Not Detected (NotDetected) Ur Amphetamines Screen Not Detected (NotDetected) U Methamphetamines Scrn Not Detected (NotDetected) U Benzodiazepines Scrn Detected H (NotDetected) Urine Cocaine Screen Not Detected (NotDetected) U Marijuana (THC) Screen Not Detected (NotDetected) Disposition Clinical Impression: Behavior concern, Toe sprain Disposition: HOME SELF-CARE Condition: Fair Is patient prescribed a controlled substance at d/c from ED?: No Referrals: Mango Randall DO [Primary Care Provider] - 1-2 days
--- NOTE | 2021-08-05 11:29 | XR ---
EXAMINATION TYPE: XR foot complete RT DATE OF EXAM: 08/05/2021 COMPARISON: NONE HISTORY: Pain and swelling right first toe TECHNIQUE: Three views are submitted. FINDINGS: The osseous structures are intact. There is no acute fracture or dislocation. Arthropathy of the f irst MTP.. IMPRESSION: 1. No acute fracture or dislocation. If symptoms persist, follow-up exam in 7 to 10 days could be ob tained.
[2021-08-05 14:40] LABS: Appearance,Urine Clear (Clear); Bilirubin,Urine Negative (Negative); Blood,Urine Trace (Negative); Color,Urine Yellow; Glucose,Urine (UA) Negative (Negative); Ketones,Urine 2+ (Negative); Leukocyte Esterase,Urine Trace (Negative); Mucus,Urine Moderate /hpf; Nitrite,Urine Negative (Negative); Protein,Urine 1+ (Negative); RBC,Urine 3 /hpf (0-5); Specific Gravity,Urine 1.042 (1.001-1.035); Squamous Epithelial Cell,Urine 1 /hpf (0-4); WBC,Urine 2 /hpf (0-5)
[2021-08-05 14:44] LABS: Amphetamine Screen,Urine Not Detected (NotDetected); Barbiturate Screen,Urine Not Detected (NotDetected); Benzodiazepines Screen,Urine Detected (NotDetected); Cocaine Screen,Urine Not Detected (NotDetected); Methadone Screen, Urine Not Detected (NotDetected); Opiate Screen,Urine Not Detected (NotDetected); Oxycodone Screen, Urine Not Detected (NotDetected); Phencyclidine Screen,Urine Not Detected (NotDetected); Tricyclic Antidepressant,Urine Not Detected (NotDetected); Urn Cannabinoid Scrn Not Detected (NotDetected)
[2021-08-05 14:57] VITALS: BP 132/70; PULSE 76; RESP 16; TEMP 97.9
== END 2021-08-05 14:57 | disposition home or self-care (01) ==
LOC: EC 09:39
DX: S93.501A Unspecified sprain of right great toe, initial encounter (principal); R46.89 Other symptoms and signs involving appearance and behavior; E78.5 Hyperlipidemia, unspecified; Z79.899 Other long term (current) drug therapy; W22.8XXA Striking against or struck by other objects, initial encounter
CPT/HCPCS: 80306; 81001; 82075; 99283

== ENCOUNTER → 2021-09-19 | Outpatient (CLI) | payer OTHER ==
--- NOTE | 2021-09-20 12:50 | MM ---
Reason for exam: screening (asymptomatic). Last mammogram was performed 1 year and 5 months ago. History: Patient is postmenopausal and is nulliparous. Benign MG stereo VAD BX addl RT of the right breast, July 05, 2018. Benign MG stereo VAD BX RT of the right breast, July 05, 2018. Excisional biopsy of the right breast, September 14, 2007. 2 excisional biopsies of the left breast. Physical Findings: A clinical breast exam by your physician is recommended on an annual basis and results should be correlated with mammographic findings. MG Screening Mammo w CAD Bilateral CC and MLO view(s) were taken. Prior study comparison: April 20, 2020, bilateral MG screening mammo w CAD. January 10, 2019, right breast MG diagnostic mammo RT w CAD. The breast tissue is extremely dense which could obscure a lesion on mammography. Finding #1: Stable architectural distortion in the anterior position of the right breast. Finding #2: Stable architectural distortion in the inferior posterior position of the left breast consistent with known excision changes. Finding #3: There are typically benign round calcifications in both breasts. Previous mammotome biopsy in the right breast x 2. There is no discrete abnormality. ASSESSMENT: Benign, BI-RAD 2 RECOMMENDATION: Routine screening mammogram of both breasts in 1 year.
== END | disposition home or self-care (01) ==
LOC: RADMAMWWP 10:54
PROVIDERS: ATTEND Family Medicine
DX: Z12.31 Encounter for screening mammogram for malignant neoplasm of breast (principal)
CPT/HCPCS: 77067

== ENCOUNTER 2022-06-23 15:24 | Emergency (ER) | payer OTHER ==
[2022-06-23 16:25] VITALS: RESP 18; TEMP 98
--- NOTE | 2022-06-23 16:39 | ED ---
ENT HPI - General Chief complaint: Dental/Oral Stated complaint: not acting herself Time Seen by Provider: 06/23/22 16:23 Source: patient, EMS Mode of arrival: EMS - History of Present Illness Initial comments: This 56-year-old female presents for some oral or dental pain. She apparently has cognitive delay in it is difficult to get any accurate history from her. Per report, and apparently has been going on for the past several days. She normally has dentures on her upper dentition report relates that she apparently has had some sores over her dental sockets of her upper dentition and cannot wear her dentures. She also has not been eating as well or taking her medications as well. There is been no known fevers. She has not followed up with a dentist in this regard as of yet. There is no other identifiable complaints or modifying factors. - Related Data Home Medications Medication Instructions Recorded Confirmed Folic Acid 1 mg PO DAILY@0700 06/23/18 06/23/22 Levothyroxine Sodium [Synthroid] 25 mcg PO DAILY@0700 06/23/18 06/23/22 Simvastatin [Zocor] 20 mg PO HS 06/23/18 06/23/22 lamoTRIgine [LaMICtal] 150 mg PO DAILY@00 05/22/20 06/23/22 lamoTRIgine 100 mg PO HS 06/03/21 06/23/22 lamoTRIgine [LaMICtal] 25 mg PO HS 06/03/21 06/23/22 Cholecalciferol [Vitamin D3 (25 25 mcg PO DAILY@0700 06/23/22 06/23/22 Mcg = 1000 Iu)] Divalproex [Depakote] 250 mg PO BID@0700,209906/23/22 06/23/22 Divalproex [Depakote] 500 mg PO BID@0700,209906/23/22 06/23/22 Midazolam [Nayzilam] 1 spray NASAL DAILY PRN 06/23/22 06/23/22 busPIRone HCl [Buspar] 10 mg PO BID@0700,209906/23/22 06/23/22 Previous Rx's Medication Instructions Recorded Amoxicillin 500 mg PO Q8H #30 capsule 06/23/22 Allergies Allergy/AdvReac Type Severity Reaction Status Date / Time No Known Allergies Allergy Verified 06/23/22 15:37 Review of Systems ROS Statement: Those systems with pertinent positive or pertinent negative responses have been documented in the HPI. ROS Other: All systems not noted in ROS Statement are negative. Past Medical History Past Medical History: Hyperlipidemia, Seizure Disorder Additional Past Medical History / Comment(s): Developmentally disabled, LAST SEIZURE 2007 History of Any Multi-Drug Resistant Organisms: None Reported Past Surgical History: Breast Surgery, Cholecystectomy Additional Past Surgical History / Comment(s): Benign excisional biopsy bilateral breasts. Past Anesthesia/Blood Transfusion Reactions: No Reported Reaction Past Psychological History: No Psychological Hx Reported Smoking Status: Never smoker Past Alcohol Use History: None Reported Past Drug Use History: None Reported - Past Family History Mother Family Medical History: No Reported History Brother(s) Family Medical History: Cancer General Exam - General Exam Comments Initial Comments: GENERAL: The patient is well nourished and well hydrated. VITAL SIGNS: Heart rate, blood pressure, respiratory rate reviewed as recorded in nurse's notes. EYES: Pupils are round and reactive. Extraocular movements are intact. No conjunctival / lid redness or swelling. ENT: No external evidence of injury, swelling, or ecchymosis. Airway is patent. Throat is clear. There is slight irritation noted over the oral sockets in the upper dentition. There is normal teeth in the lower dentition. NECK: Nontender. No swelling or evidence of injury. No subcutaneous emphysema. Trachea is midline. No thyroid mass. HEART: Regular rate and rhythm. Good peripheral pulses. LUNGS/CHEST: Breath sounds clear and equal bilaterally. No rales, rhonchi, or wheezes. No ecchymosis, subcutaneous emphysema, or tenderness. ABDOMEN: Abdomen soft without tenderness. No palpable masses or organomegaly. No peritoneal signs. No abdominal wall swelling or ecchymosis. EXTREMITIES: No extremity tenderness. Normal muscle tone and function. No thoracolumbar tenderness. NEUROLOGIC: Sensation is grossly intact. Cranial nerve exam reveals face is symmetrical, tongue is midline, speech is clear. Cognitive problems identified which are chronic in nature. SKIN: No abrasions or ecchymosis is noted. No induration or masses noted. PSYCHIATRIC: Alert and pleasant, cognitive deficits noticed. Course Vital Signs 06/23/22 15:28 Temperature 98.0 F Pulse Rate 67 Respiratory 18 Rate Blood Pressure 111/55 O2 Sat by Pulse 97 Oximetry Medical Decision Making - Medical Decision Making The patient was seen and examined. Antibiotics will be prescribed in case this is consistent with a bacterial infection. Close follow-up with dentist is highly recommended. Return parameters are discussed. Motrin and Tylenol are also recommended. Disposition Clinical Impression: Acute oral pain Disposition: HOME SELF-CARE Condition: Good Instructions (If sedation given, give patient instructions): Gingivostomatitis (ED) Additional Instructions: Please follow up with a dentist as soon as possible. Please also take tylenol over the counter 1000 mg every six hours as needed for pain. You also may take motrin over the counter 400 mg every six hours as needed for pain. Prescriptions: Amoxicillin 500 mg PO Q8H #30 capsule Is patient prescribed a controlled substance at d/c from ED?: No Referrals: None,Stated [Primary Care Provider] - 1-2 days Time of Disposition: 16:34
--- NOTE | 2022-06-23 18:32 | ED ---
Medical Decision Making - Medical Decision Making The nurse relates that she went to discharge the patient and called the residential. They apparently wanted the patient to see psychiatry service as she has been more agitated and/or anxious recently. The psychiatric nurse relates that she evaluated the patient and talked with the residential. They feel as though she is stable to be discharged back to the residential. The residential requested that we put her on something for anxiety. Xanax is prescribed. It is felt as though she stable for discharge back to the residential. Disposition Clinical Impression: Acute oral pain Disposition: HOME SELF-CARE Condition: Good Instructions (If sedation given, give patient instructions): Gingivostomatitis (ED), Anxiety (ED) Additional Instructions: Please follow up with a dentist as soon as possible. Please also take tylenol over the counter 1000 mg every six hours as needed for pain. You also may take motrin over the counter 400 mg every six hours as needed for pain. Prescriptions: Amoxicillin 500 mg PO Q8H #30 capsule ALPRAZolam [Xanax] 0.5 mg PO TID PRN #9 tablet PRN Reason: Anxiety Is patient prescribed a controlled substance at d/c from ED?: Yes When asked, does pt state using other controlled substances?: No If prescribed controlled substance>3 days was MAPS reviewed?: Prescribed <3 Days If opioid is for acute pain is fill amount 7 days or less?: No If Rx opioid, was Start Talking consent form obtained?: No Referrals: None,Stated [Primary Care Provider] - 1-2 days Time of Disposition: 18:28
[2022-06-23 20:35] VITALS: BP 133/53; PULSE 86
== END 2022-06-23 20:35 | disposition home or self-care (01) ==
LOC: EC 15:24
DX: K13.79 Other lesions of oral mucosa (principal); E78.5 Hyperlipidemia, unspecified; Z79.899 Other long term (current) drug therapy
CPT/HCPCS: 99283

== ENCOUNTER → 2022-08-21 | Outpatient (CLI) | payer OTHER ==
--- NOTE | 2022-08-21 18:43 | MR ---
EXAMINATION TYPE: MR brain wo con DATE OF EXAM: 08/21/2022 COMPARISON: CT brain June 03, 2021 HISTORY: AMS, personality change TECHNIQUE: Multiplanar, multisequence imaging of the brain and brainstem is performed without IV cont rast. FINDINGS: Diffusion weighted images demonstrate no evidence of a recent infarct or other diffusion abnormality. There is mild to moderate ventricular and sulcal prominence with sulcal prominence greatest over the bilateral superior parietal lobes similar to prior CT. No significant white matter changes. Old lacun ar infarct deep left parietal lobe axial image 19 is redemonstrated Midline structures redemonstrate normal morphology. The craniocervical junction remains within la l limits. Normal vascular flow voids are present. Minimal mucosal thickening inferior left maxillary sinus otherwise the paranasal sinuses are clear. Globes are intact bilaterally. Hyperostosis frontali s redemonstrated. IMPRESSION: Moderate diffuse cerebral atrophy greatest over the bilateral superior parietal lobes red emonstrated. Old lacunar infarct deep left parietal lobe redemonstrated.
== END | disposition home or self-care (01) ==
LOC: RADMRIMAIN 12:12
PROVIDERS: ATTEND Family Medicine
DX: G31.9 Degenerative disease of nervous system, unspecified (principal); Z86.73 Personal history of transient ischemic attack (TIA), and cerebral infarction without residual deficits
CPT/HCPCS: 70551

== ENCOUNTER → 2022-09-10 | Outpatient (CLI) | payer OTHER ==
--- NOTE | 2022-09-10 13:12 | US ---
EXAMINATION TYPE: US carotid duplex BILAT DATE OF EXAM: 09/10/2022 COMPARISON: NONE CLINICAL HISTORY: Z86.73 PRSNL XH OF TIA. TIA, pt confused TECHNIQUE: Carotid duplex ultrasound examination. Indirect Doppler criteria was utilized. FINDINGS: EXAM MEASUREMENTS: RIGHT: Peak Systolic Velocity (PSV) cm/sec ----- Right CCA: 144 ----- Right ICA: 131 ----- Right ECA: 118 ICA/CCA ratio: 0.9 RIGHT: End Diastole cm/sec ----- Right CCA: 31.7 ----- Right ICA: 44.3 ----- Right ECA: 15.6 LEFT: Peak Systolic Velocity (PSV) cm/sec ----- Left CCA: 143 ----- Left ICA: 158 ----- Left ECA: 108 ICA/CCA ratio: 1.1 LEFT: End Diastole cm/sec ----- Left CCA: 20.5 ----- Left ICA: 53.7 ----- Left ECA: 12.3 VERTEBRALS (direction of flow): Right Vertebral: Antegrade Left Vertebral: Antegrade Rhythm: Normal SENIOR CREDIT ANALYST NOTES: Mild homogeneous plaque with no stenosis seen IMPRESSION: Less than 50% stenosis of the bilateral carotid bifurcations. Criteria for Assigning % of Stenosis / Diameter reduction (Estimation based on the indirect measurements of the internal carotid artery velocities (ICA PSV). 1. Normal (no stenosis)=ICA PSV < 125 cm/s: ratio < 2.0: ICA EDV<40 cm/s. 2. Less than 50% stenosis=ICA PSV < 125 cm/s: ratio < 2.0: ICA EDV<40 cm/s. 3. 50 to 69% stenosis=ICA PSV of 125 to 230 cm/s: ration 2.0 ? 4.0: ICA EDV 40-100 cm/s. 4. Greater than 70% stenosis to near occlusion= ICA PSV > 230 cm/s: ratio > 4.0: ICA EDV > 100 cm/s. 5. Near occlusion= ICA PSV velocities may be low or undetectable: variable ratio and ICA EDV. 6. Total occlusion=unable to detect flow.
== END | disposition home or self-care (01) ==
LOC: RADUSWWP 10:52
PROVIDERS: ATTEND Psychiatry & Neurology Neurology
DX: I65.23 Occlusion and stenosis of bilateral carotid arteries (principal); Z86.73 Personal history of transient ischemic attack (TIA), and cerebral infarction without residual deficits
CPT/HCPCS: 93880

== ENCOUNTER 2022-10-31 18:57 | Emergency (ER) | payer OTHER ==
[2022-10-31 19:24] VITALS: BP 131/89; PULSE 92; RESP 22; TEMP 96.3
--- NOTE | 2022-10-31 19:29 | ED ---
General Adult HPI - General Chief complaint: Psychiatric Symptoms Stated complaint: Mental Health Time Seen by Provider: 10/31/22 19:12 Source: family, RN notes reviewed, old records reviewed, Caregiver Mode of arrival: ambulatory Limitations: no limitations - History of Present Illness Initial comments: 56-year-old developmentally delayed female presents ambulatory with her caregiver. Caregiver states the patient has not been eating well and not taking her medications regularly. This has been ongoing for the past 3 weeks. No fevers, no nausea vomiting or diarrhea. Did see the primary care Dr. Randall on Thursday for this problem and lab work was performed. Caregiver concerned for dehydration. Caregiver also states patient is complaining of ringing in her ears. States she did discuss this with Dr. Randall with no definitive cause. -: week(s) (3) Severity scale (1-10): 0 Associated Symptoms: other (tinitus) Treatments Prior to Arrival: other (PCP Thursday labwork) - Related Data Home Medications Medication Instructions Recorded Confirmed Folic Acid 1 mg PO DAILY@00 06/23/18 06/23/22 Levothyroxine Sodium [Synthroid] 25 mcg PO DAILY@69906/23/18 06/23/22 Simvastatin [Zocor] 20 mg PO HS 06/23/18 06/23/22 lamoTRIgine [LaMICtal] 150 mg PO DAILY@00 05/22/20 06/23/22 lamoTRIgine 100 mg PO HS 06/03/21 06/23/22 lamoTRIgine [LaMICtal] 25 mg PO HS 06/03/21 06/23/22 Cholecalciferol [Vitamin D3 (25 25 mcg PO DAILY@69906/23/22 06/23/22 Mcg = 1000 Iu)] Divalproex [Depakote] 250 mg PO BID@0700,209906/23/22 06/23/22 Divalproex [Depakote] 500 mg PO BID@0700,209906/23/22 06/23/22 Midazolam [Nayzilam] 1 spray NASAL DAILY PRN 06/23/22 06/23/22 busPIRone HCl [Buspar] 10 mg PO BID@0700,209906/23/22 06/23/22 Previous Rx's Medication Instructions Recorded ALPRAZolam [Xanax] 0.5 mg PO TID PRN #9 tablet 06/23/22 Amoxicillin 500 mg PO Q8H #30 capsule 06/23/22 Cephalexin [Keflex] 500 mg PO BID 7 Days #14 cap 10/31/22 Allergies Allergy/AdvReac Type Severity Reaction Status Date / Time No Known Allergies Allergy Verified 10/31/22 19:02 Review of Systems ROS Statement: Those systems with pertinent positive or pertinent negative responses have been documented in the HPI. ROS Other: All systems not noted in ROS Statement are negative. Past Medical History Past Medical History: Hyperlipidemia, Seizure Disorder Additional Past Medical History / Comment(s): Developmentally disabled, LAST SEIZURE 2007 History of Any Multi-Drug Resistant Organisms: None Reported Past Surgical History: Breast Surgery, Cholecystectomy Additional Past Surgical History / Comment(s): Benign excisional biopsy bilateral breasts. Past Anesthesia/Blood Transfusion Reactions: No Reported Reaction Past Psychological History: No Psychological Hx Reported Smoking Status: Never smoker Past Alcohol Use History: None Reported Past Drug Use History: None Reported - Past Family History Mother Family Medical History: No Reported History Brother(s) Family Medical History: Cancer General Exam Limitations: no limitations, altered mental status (Cognitively delayed) General appearance: alert, in no apparent distress Head exam: Present: atraumatic, normocephalic Eye exam: Absent: scleral icterus, conjunctival injection, periorbital swelling ENT exam: Present: normal oropharynx, mucous membranes moist Expanded Mouth exam: Present: tongue normal, tongue elevation. Absent: drooling, trismus, muffled voice Throat exam: negative: tonsillar erythema, tonsillar exudate Neck exam: Present: full ROM. Absent: tenderness, meningismus Respiratory exam: Present: normal lung sounds bilaterally. Absent: respiratory distress, accessory muscle use Cardiovascular Exam: Present: regular rate GI/Abdominal exam: Present: soft. Absent: rigid Extremities exam: Present: normal capillary refill. Absent: pedal edema Neurological exam: Present: alert, normal gait Psychiatric exam: Present: normal affect, normal mood Skin exam: Present: warm, dry, normal color. Absent: cyanosis, diaphoretic, petechiae, pallor Course Vital Signs 10/31/22 18:59 Temperature 96.3 F L Pulse Rate 92 Respiratory 22 Rate Blood Pressure 131/89 O2 Sat by Pulse 97 Oximetry Medical Decision Making - Medical Decision Making Labs drawn by Dr. Randall on October 28 showing stable hemoglobin and hematocrit, no evidence of leukocytosis. Electrolytes stable. Valproic acid level therapeutic. Lamictal level 19 which is elevated and may be the cause of the patient's tinnitus. MRI was reviewed from August 2022. Urinalysis shows evidence of UTI. Patient tolerating oral fluids and did take potassium supplementation and antibiotics in the ER. She has no nausea vomiting or diarrhea. No abdominal pain. Ambulatory with a steady gait Caregiver was directed to hold her Lamictal until Thursday. Given antibiotics as prescribed for urinary tract infection. Follow-up with her primary care Dr. Randall on Thursday morning for reevaluation. She is agreeable to this plan of care. Case discussed with Dr. Nicole Was pt. sent in by a medical professional or institution? @ -no Did you speak to anyone other than the patient for history? @ -caregiver Did you review nursing and triage notes? @ -yes i agree Were old charts reviewed? @ -yes MRI, labs Differential Diagnosis? @ -Dehydration, electrolyte abnormality, urinary tract infection, tinnitus What testing was considered but not performed? (CT, X-rays, U/S, labs)? Why? @ none What meds were considered but not given? Why? @ -none Did you discuss the management of the patient with other professionals? @ -no Did you reconcile home meds? @ -no Was smoking cessation discussed for >3mins.? @ -n/a Was critical care preformed (if so, how long)? @ -no Were there social determinants of health that impacted care today? How? (Home lessness, low income, unemployed, alcoholism, drug addiction, transportation, low edu. Level, literacy, decrease access to med. care, assisted, rehab)? @ -low literacy, cognitive impairment Was there de-escalation of care discussed even if they declined? (Discuss DNR or withdrawal of care, Hospice)? @ -no What co-morbidities impacted this encounter? (DM, HTN, Smoking, COPD, CAD, Cancer, CVA, Hep., AIDS, mental health diagnosis, sleep apnea, morbid obesity)? @ -Seizures, developmental delay Was patient admitted / discharged? @ -discharged Undiagnosed new problem with uncertain prognosis? @ -Super therapeutic Lamictal level Drug Therapy requiring intensive monitoring for toxicity (Heparin, Nitro, Insulin, Cardizem)? @ -no Were any procedures done? @ -no Diagnosis/symptom? @ -Tinnitus secondary to super therapeutic Lamictal level, urinary tract infection Acute, or Chronic, or Acute on Chronic? @ -acute Uncomplicated (without systemic symptoms) or Complicated (systemic symptoms)? @ -Complicated Side effects of treatment? @ -[none] Exacerbation, Progression, or Severe Exacerbation] @ -[no] Poses a threat to life or bodily function? @ -[no] - Lab Data Result diagrams: 10/31/22 19:49 10/31/22 19:49 Lab Results 10/31/22 10/31/22 10/31/22 Range/Units 19:49 19:49 20:28 WBC 3.8 (3.8-10.6) k/uL RBC 3.60 L (3.80-5.40) m/uL Hgb 11.8 (11.4-16.0) gm/dL Hct 36.6 (34.0-46.0) % MCV 101.7 H (80.0-100.0) fL MCH 32.7 (25.0-35.0) pg MCHC 32.2 (31.0-37.0) g/dL RDW 14.8 (11.5-15.5) % Plt Count 152 (150-450) k/uL MPV 8.5 Neutrophils % 43 % Lymphocytes % 45 % Monocytes % 9 % Eosinophils % 1 % Basophils % 0 % Neutrophils # 1.6 (1.3-7.7) k/uL Lymphocytes # 1.7 (1.0-4.8) k/uL Monocytes # 0.4 (0-1.0) k/uL Eosinophils # 0.1 (0-0.7) k/uL Basophils # 0.0 (0-0.2) k/uL Macrocytosis Slight Sodium 142 (137-145) mmol/L Potassium 3.3 L (3.5-5.1) mmol/L Chloride 106 (98-107) mmol/L Carbon Dioxide 27 (22-30) mmol/L Anion Gap 9 mmol/L BUN 25 H (7-17) mg/dL Creatinine 0.69 (0.52-1.04) mg/dL Est GFR (CKD-EPI)AfAm >90 (>60 ml/min/1.73 sqM) Est GFR (CKD-EPI)NonAf >90 (>60 ml/min/1.73 sqM) Glucose 89 (74-99) mg/dL Calcium 10.5 H (8.4-10.2) mg/dL Total Bilirubin 0.4 (0.2-1.3) mg/dL AST 43 H (14-36) U/L ALT 31 (4-34) U/L Alkaline Phosphatase 90 (38-126) U/L Total Protein 7.7 (6.3-8.2) g/dL Albumin 4.5 (3.5-5.0) g/dL Urine Color Yellow Urine Appearance Cloudy H (Clear) Urine pH 6.5 (5.0-8.0) Ur Specific [place] 1.030 (1.001-1.035) Urine Protein 1+ H (Negative) Urine Glucose (UA) Negative (Negative) Urine Ketones 2+ H (Negative) Urine Blood Negative (Negative) Urine Nitrite Negative (Negative) Urine Bilirubin 1+ H (Negative) Urine Urobilinogen 3.0 (<2.0) mg/dL Ur Leukocyte Esterase Large H (Negative) Urine RBC 7 H (0-5) /hpf Urine WBC 69 H (0-5) /hpf Ur Squamous Epith Cells <1 (0-4) /hpf Urine Bacteria Occasional H (None) /hpf Hyaline Casts 5 H (0-2) /lpf Urine Mucus Many H (None) /hpf Disposition Clinical Impression: UTI (urinary tract infection), Adverse drug reaction Narrative: Supratherapeutic Lamictal level Disposition: HOME SELF-CARE Condition: Good Instructions (If sedation given, give patient instructions): Adverse Drug Reaction (ED), Urinary Tract Infection in Older Adults (ED) Additional Instructions: Hold Lamictal medication until Thursday. Take antibiotics as prescribed for urinary tract infection. Follow-up with the primary care doctor on Thursday. Return to the emergency room with any new or concerning symptoms. Prescriptions: Cephalexin [Keflex] 500 mg PO BID 7 Days #14 cap Is patient prescribed a controlled substance at d/c from ED?: No Referrals: Mango Randall DO [Primary Care Provider] - 1-2 days Time of Disposition: 21:38
[2022-10-31 20:06] LABS: Basophils % (A) 0 %; Eosinophils # (A) 0.1 k/uL (0-0.7); Eosinophils % (A) 1 %; HCT 36.6 % (34.0-46.0); HGB 11.8 gm/dL (11.4-16.0); Lymphocytes # (A) 1.7 k/uL (1.0-4.8); Lymphocytes % (A) 45 %; MCH 32.7 pg (25.0-35.0); MCHC 32.2 g/dL (31.0-37.0); MCV 101.7 fL (80.0-100.0); Macrocytosis Slight; Mean Platelet Volume 8.5; Monocytes # (A) 0.4 k/uL (0-1.0); Monocytes % (A) 9 %; Neutrophils # (A) 1.6 k/uL (1.3-7.7); Neutrophils % (A) 43 %; Platelet Count 152 k/uL (150-450); RDW 14.8 % (11.5-15.5); WBC 3.8 k/uL (3.8-10.6)
[2022-10-31 20:28] LABS: ALT 31 U/L (4-34); AST 43 U/L (14-36); African American GFR (CKD) >90 (>60 ml/min/1.73 sqM); Albumin 4.5 g/dL (3.5-5.0); Alkaline Phosphatase 90 U/L (38-126); Anion Gap 9 mmol/L; Blood Urea Nitrogen 25 mg/dL (7-17); Calcium 10.5 mg/dL (8.4-10.2); Carbon Dioxide 27 mmol/L (22-30); Chloride 106 mmol/L (98-107); Glucose 89 mg/dL (74-99); Non-African American GFR(CKD) >90 (>60 ml/min/1.73 sqM); Potassium 3.3 mmol/L (3.5-5.1); Sodium 142 mmol/L (137-145); Total Bilirubin 0.4 mg/dL (0.2-1.3); Total Protein 7.7 g/dL (6.3-8.2)
[2022-10-31] MEDS ORDERED: POTASSIUM CHLORIDE ER 20 MEQ TAB.ER PO STA (20:39)
[2022-10-31 20:56] LABS: Appearance,Urine Cloudy (Clear); Bacteria,Urine Occasional /hpf; Bilirubin,Urine 1+ (Negative); Blood,Urine Negative (Negative); Color,Urine Yellow; Glucose,Urine (UA) Negative (Negative); Hyaline Casts,Urine 5 /lpf (0-2); Ketones,Urine 2+ (Negative); Leukocyte Esterase,Urine Large (Negative); Mucus,Urine Many /hpf; Nitrite,Urine Negative (Negative); PH, Urine 6.5 (5.0-8.0); Protein,Urine 1+ (Negative); RBC,Urine 7 /hpf (0-5); Squamous Epithelial Cell,Urine <1 /hpf (0-4); WBC,Urine 69 /hpf (0-5)
[2022-10-31] MEDS ORDERED: CEPHALEXIN 500 MG CAP PO STA (21:25)
== END 2022-10-31 21:53 | disposition home or self-care (01) ==
LOC: EC 18:57
DX: N39.0 Urinary tract infection, site not specified (principal); T50.905A Adverse effect of unspecified drugs, medicaments and biological substances, initial encounter; E78.5 Hyperlipidemia, unspecified; Z79.899 Other long term (current) drug therapy
CPT/HCPCS: 36415; 80053; 80175; 81001; 85025; 87086; 99285

== ENCOUNTER → 2024-02-16 | Outpatient (CLI) | payer OTHER ==
--- NOTE | 2024-02-16 12:26 | XR ---
EXAMINATION TYPE: XR lumbar spine 2 or 3V DATE OF EXAM: 02/16/2024 11:57 AM CLINICAL INDICATION:Female, 58 years old with history of M54.50 LOW BACK PAIN, UNSPECIFIED; PHH COMPARISON: None TECHNIQUE: XR lumbar spine 2 or 3V - Frontal, lateral and coned in L5-S1 lateral views of the spine. FINDINGS: No evidence of any acute osseous pathology. No evidence of loss of vertebral body height i s seen. There is normal alignment of the lumbar vertebral bodies. Mild scattered disc space narrowing . Multilevel marginal osteophyte formation throughout the visualized spine. There is facet joint arth ropathy throughout the spine. Scattered at least mild neural foraminal stenosis. Right upper quadrant cholecystectomy clips. IMPRESSION: 1. No acute fracture. 2. Mild multilevel disc degeneration.
== END | disposition home or self-care (01) ==
LOC: RADXRMAIN 11:41
PROVIDERS: ATTEND Psychiatry & Neurology Neurology
DX: M51.36 Other intervertebral disc degeneration, lumbar region (principal)
CPT/HCPCS: 72100